=== PATIENT | male | born 1955 | race African-American/Black ===

== ENCOUNTER 2017-08-12 19:06 | Inpatient (IN) | payer SELFPAY ==
[~2017-08-12] VITALS: Ht 185.4 cm; Wt 73.1 kg
[~2017-08-12 19:06] MED LIST: CLIN1CAP5 PO; Z.0.NO CURRENT MEDS
[2017-08-12 19:30] VITALS: BP 128/61; PULSE 89; RESP 16; TEMP 98.3; O2SAT 97
[2017-08-12] MEDS ORDERED: KETOROLAC TROMETHAMINE 30 MG/ML (IVP) VIAL IV PUSH ONE (21:00)
[2017-08-12] MEDS ORDERED: guaiFENesin/CODEINE SYRUP 200 MG/20 MG/10 ML CUP PO ONE (21:00)
--- NOTE | 2017-08-12 21:04 | PD ---
HPI Chief Complaint: cough Time Seen by Provider: 20:51 Travel History International Travel<30 days: No Contact w/Intl Traveler<30days: No Traveled to known affect area: No History of Present Illness HPI 62yo M with no PMH here with multiple complaints. Said it started out with generalized muscle aches 2 weeks ago and then started coughing and having chest congestion. Chest pain is diffusely in his chest and intermittent, worst with coughing. +Chills. Denies any actual fever. +Diarrhea for 2 days. No abdominal pain but some irritation. Denies any n/v, dysuria, hematuria, focal weakness or numbness. Pt has been taking advil, weed grass and vitamin C. + Cig smoking. PFSH Past Medical History Diminished Hearing: No Renal Failure: Yes Influenza Vaccination: No Social History Alcohol Use: Yes (6PACK A WEEK) Tobacco Use: Yes (PACK A DAY) Substance Use: No Allergies-Medications (Allergen,Severity, Reaction): Coded Allergies: No Known Allergies (Verified Adverse Reaction, Unknown, 08/12/17) Reported Meds & Prescriptions Reported Meds & Active Scripts Active No Active Prescriptions or Reported Medications Review of Systems Except as stated in HPI: all other systems reviewed are Neg Physical Exam Narrative GENERAL: 62yo M in mild distress. SKIN: Focused skin assessment warm/dry. HEAD: Atraumatic. Normocephalic. EYES: Pupils equal and round. No scleral icterus. No injection or drainage. ENT: No nasal bleeding or discharge. Mucous membranes pink and moist. NECK: Trachea midline. No JVD. CARDIOVASCULAR: Regular rate and rhythm. No murmur appreciated. RESPIRATORY: No accessory muscle use. Clear to auscultation. Breath sounds equal bilaterally. GASTROINTESTINAL: Abdomen soft, mild epigastric ttp. No rebound tenderness or guarding. MUSCULOSKELETAL: No obvious deformities. No clubbing. No cyanosis. No edema. NEUROLOGICAL: Awake and alert. No obvious cranial nerve deficits. Motor grossly within normal limits. Normal speech. PSYCHIATRIC: Appropriate mood and affect; insight and judgment normal. Data Data Last Documented VS Vital Signs Date Time Temp Pulse Resp B/P (MAP) Pulse Ox O2 Delivery O2 Flow Rate FiO2 08/12/17 19:30 98.3 89 16 128/61 (83) 97 Orders Orders Electrocardiogram (08/12/17 20:58) Basic Metabolic Panel (Bmp) (08/12/17 20:58) Complete Blood Count With Diff (08/12/17 20:58) Troponin I (08/12/17 20:58) Lipase (08/12/17 20:58) Chest, Single Ap (08/12/17 20:58) Ketorolac Inj (Toradol Inj) (08/12/17 21:00) Guaifen-Cod 200-20 Mg/10ml Liq (Robituss (08/12/17 21:00) Influenzae A/B Antigen (08/12/17 20:58) Sputum Afb Culture And Stain (08/12/17 23:44) Vancomycin Inj (Vancomycin Inj) (08/12/17 23:45) Piperacil-Tazo 3.375 Gm Premix (Zosyn 3. (08/12/17 23:45) Blood Culture (08/12/17 23:44) Lactic Acid Sepsis Protocol (08/12/17 23:44) Labs Laboratory Tests Test 08/12/17 21:15 White Blood Count 29.0 TH/MM3 Red Blood Count 3.79 MIL/MM3 Hemoglobin 11.2 GM/DL Hematocrit 33.7 % Mean Corpuscular Volume 88.8 FL Mean Corpuscular Hemoglobin 29.6 PG Mean Corpuscular Hemoglobin Concent 33.3 % Red Cell Distribution Width 13.8 % Platelet Count 378 TH/MM3 Mean Platelet Volume 8.8 FL Neutrophils (%) (Auto) 78.9 % Lymphocytes (%) (Auto) 7.9 % Monocytes (%) (Auto) 12.6 % Eosinophils (%) (Auto) 0.0 % Basophils (%) (Auto) 0.6 % Neutrophils # (Auto) 22.9 TH/MM3 Lymphocytes # (Auto) 2.3 TH/MM3 Monocytes # (Auto) 3.6 TH/MM3 Eosinophils # (Auto) 0.0 TH/MM3 Basophils # (Auto) 0.2 TH/MM3 CBC Comment AUTO DIFF Differential Total Cells Counted 100 Neutrophils % (Manual) 76 % Band Neutrophils % 7 % Lymphocytes % 12 % Monocytes % 5 % Neutrophils # (Manual) 24.1 TH/MM3 Differential Comment FINAL DIFF MANUAL Platelet Estimate NORMAL Platelet Morphology Comment NORMAL Blood Urea Nitrogen 14 MG/DL Creatinine 1.16 MG/DL Random Glucose 94 MG/DL Calcium Level 8.6 MG/DL Sodium Level 140 MEQ/L Potassium Level 3.5 MEQ/L Chloride Level 105 MEQ/L Carbon Dioxide Level 25.0 MEQ/L Anion Gap 10 MEQ/L Estimat Glomerular Filtration Rate 77 ML/MIN Troponin I LESS THAN 0.02 NG/ML Lipase 118 U/L [facility] Medical Decision Making Medical Screen Exam Complete: Yes Emergency Medical Condition: Yes Interpretation(s) EKG: NSR 87bpm. Normal axis. No ST segment elevation or depression. Differential Diagnosis Flu like symptoms vs. viral syndrome vs. pancreatitis vs. gastritis vs. pneumonia vs. ACS Narrative Course 62yo M with flu like symptoms. Chest pain is atypical but pt is 62yo and a cig smoker so will check cardiac enzyme and obtain EKG and CXR. Labs reviewed, leukocytosis at 29,000. H/H low at 11.2/33.7, no prior to compare. Troponin negative. Lipase normal. CXR showed large airspace consolidation in right upper lobe. Consider atypical infection/TB. Pt denies any history of HIV, recent incarceration, homelessness, history of TB, international traveling. Will add blood culture, sputum AFB, lactic acid and cover with vancomycin and zosyn. Will place him on airborne isolation for now until TB is ruled out. Discussed with Dr. Zayas and accepted to his service. Diagnosis Primary Impression: Pneumonia Qualified Codes: J18.1 - Lobar pneumonia, unspecified organism Admitting Information Admitting Physician Requests: Admit Scripts No Active Prescriptions or Reported Meds Jennifer Chand DO August 12, 2017 21:04
--- NOTE | 2017-08-12 21:46 | RADRPT ---
EXAM DATE: 08/12/2017 9:41 PM EDT AGE/SEX: 62 years / Male INDICATIONS: Chest pain. CLINICAL DATA: This is the patient's initial encounter. Patient reports that signs and symptoms have been present for 2 weeks and indicates a pain score of 3/10. MEDICAL/SURGICAL HISTORY: None. None. COMPARISON: No prior [facility] exams available for comparison. FINDINGS: Large area of airspace consolidation in the right upper lobe. Left lung is clear. Cardiomediastinal c ontours are within normal limits. Bony thorax is intact. CONCLUSION: 1. Large airspace consolidation in the right upper lobe. Consider atypical infection/TB. Recommend f ollow-up to resolution. Electronically signed by: Khai Moe MD 08/12/2017 9:45 PM EDT
[2017-08-12 21:51] LABS: AUTOMATED NEUTROPHIL # 22.9 TH/MM3 (1.8-7.7); BASOPHIL # 0.2 TH/MM3 (0-0.2); BASOPHIL % 0.6 % (0.0-2.0); HEMATOCRIT 33.7 % (39.0-51.0); HEMOGLOBIN 11.2 GM/DL (13.0-17.0); LYMPH % 7.9 % (9.0-44.0); LYMPHOCYTE # 2.3 TH/MM3 (1.0-4.8); MEAN CELL VOLUME 88.8 FL (80.0-100.0); MEAN CORPUSCULAR HEMOGLOBIN 29.6 PG (27.0-34.0); MEAN CORPUSCULAR HGB CONC 33.3 % (32.0-36.0); MEAN PLATELET VOLUME 8.8 FL (7.0-11.0); MONO % 12.6 % (0.0-8.0); MONOCYTE # 3.6 TH/MM3 (0-0.9); NEUT % 78.9 % (16.0-70.0); PLATELET COUNT 378 TH/MM3 (150-450); RED BLOOD COUNT 3.79 MIL/MM3 (4.50-5.90); RED CELL DISTRIBUTION WIDTH 13.8 % (11.6-17.2)
[2017-08-12 22:12] LABS: BLOOD UREA NITROGEN 14 MG/DL (7-18); CALCIUM 8.6 MG/DL (8.5-10.1); CHLORIDE 105 MEQ/L (98-107); CREATININE 1.16 MG/DL (0.60-1.30); GLOMERULAR FILTRATION RATE 77 ML/MIN (>89); GLUCOSE,RANDOM 94 MG/DL (74-106); SODIUM (NA) 140 MEQ/L (136-145)
[2017-08-12 22:17] LABS: TROPONIN I LESS THAN 0.02 NG/ML (0.02-0.05)
[2017-08-12 22:33] LABS: BANDS 7 % (0-6); LYMPHOCYTES 12 % (9-44); MONOCYTES 5 % (0-8); NEUTROPHIL # MANUAL DIFF 24.1 TH/MM3 (1.8-7.7); POLYS (SEG NEUTROPHILS) 76 % (16-70)
[2017-08-12] MEDS ORDERED: VANCOMYCIN INJ 1,150 MG in SODIUM CHLOR 0.9% 250 ML INJ 250 ML IV ONE (23:45)
[2017-08-12] MEDS ORDERED: PIPERACIL-TAZO 3.375 GM PREMIX 50 ML IV ONE (23:45)
[2017-08-13] VITALS (7 sets, daily range): BP systolic 105–128; BP diastolic 55–74; PULSE 79–94; RESP 18–24; TEMP 98.3–100.1; O2SAT 93–97
[2017-08-13] MEDS ORDERED: MAGNESIUM HYDROXIDE SUSP 30 ML CUP PO PRN (00:15)
[2017-08-13] MEDS ORDERED: NALOXONE HCL 0.4 MG/ML AMP IV PUSH PRN (00:15)
[2017-08-13] MEDS ORDERED: BISACODYL 10 MG SUPP RECTAL PRN (00:15)
[2017-08-13] MEDS ORDERED: SODIUM CHLORIDE 0.9% FLUSH 10 ML FLUSH IV FLUSH PRN (00:15)
[2017-08-13] MEDS ORDERED: SENNOSIDES 8.6 MG TAB PO PRN (00:15)
[2017-08-13] MEDS ORDERED: LACTULOSE SYRUP 20 GM/30 ML CUP PO PRN (00:15)
[2017-08-13] MEDS: cefTRIAXone INJ 2,000 MG in SODIUM CHLORIDE 0.9% INJ 100 ML IV SCH (01:00)
[2017-08-13] MEDS: AZITHROMYCIN INJ 500 MG in SODIUM CHLOR 0.9% 250 ML INJ 250 ML IV SCH ×2 (01:00→03:03)
[2017-08-13] MEDS: ENOXAPARIN SODIUM 40 MG/0.4 ML SYRINGE SQ SCH (01:01)
[2017-08-13 01:14] LABS: LACTIC ACID SEPSIS PROTOCOL 2.2 mmol/L (0.4-2.0)
--- NOTE | 2017-08-13 03:06 | HHI.HP ---
[facility] No Primary Care Physician Admission Diagnosis Right upper lobe pneumonia Diagnoses: Chief Complaint: cough, congestion Travel History International Travel<30 Days: No Contact w/Intl Traveler <30 Da: No Traveled to Known Affected Are: No History of Present Illness 62-year-old male with no medical history presents to the ED with complaining of generalized weakness, cough and chest congestion. Patient states for the last 2 weeks he has been experiencing these symptoms along with chest pain that is intermittent and worse with coughing. He states he has minimal sputum production that is yellow in color, only once has he has blood tinged. He also complains of chills but no actual fever. Denies any night sweats, dizziness, nausea or vomiting. He denies any incarceration, no surrounding sick family members and he does not live in an apartment. 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 He does still continue to smoke 1 PPD. Review of Systems Except as stated in HPI: all other systems reviewed are Neg Past Family Social History Past Medical History Patient denies any medical history Past Surgical History Patient denies any surgical history Reported Medications Reported Meds & Active Scripts Active No Active Prescriptions or Reported Medications Allergies: Coded Allergies: No Known Allergies (Verified Allergy, Unknown, 08/13/17) Active Ordered Medications Current Medications Medications (Trade) Dose Ordered Sig/Otoniel Route Start Time Stop Time Status Last Admin (NS Flush) 2 ml UNSCH PRN IV FLUSH 08/13/17 00:15 (NS Flush) 2 ml BID IV FLUSH 08/13/17 09:00 (Tylenol) 650 mg Q4H PRN PO 08/13/17 00:15 (Lovenox Inj) 40 mg Q24H SQ 08/13/17 00:15 08/13/17 01:01 (Narcan Inj) 0.4 mg UNSCH PRN IV PUSH 08/13/17 00:15 (Milk Of Magnesia Liq) 30 ml Q12H PRN PO 08/13/17 00:15 (Senokot) 17.2 mg Q12H PRN PO 08/13/17 00:15 (Dulcolax Supp) 10 mg DAILY PRN RECTAL 08/13/17 00:15 (Lactulose Liq) 30 ml DAILY PRN PO 08/13/17 00:15 Ceftriaxone Sodium 2000 mg/ Sodium Chloride 100 ml @ 200 mls/hr Q24H IV 08/13/17 00:15 08/13/17 01:00 Azithromycin 500 mg/Sodium Chloride 250 ml @ 250 mls/hr Q24H IV 08/13/17 01:00 08/13/17 03:03 Family History Patient denies any family history Social History Tobacco use: 1 PPD Alcohol use: 6 pack a week Illicit drug use: Denies Physical Exam Vital Signs Vital Signs Date Time Temp Pulse Resp B/P (MAP) Pulse Ox O2 Delivery O2 Flow Rate FiO2 08/13/17 00:52 79 20 111/67 (82) 96 Room Air 08/12/17 19:30 98.3 89 16 128/61 (83) 97 Physical Exam GENERAL: This is a well-nourished, well-developed patient, in no apparent distress. SKIN: No rashes, ecchymoses or lesions. Cool and dry. HEAD: Atraumatic. Normocephalic. EYES: Pupils equal round and reactive. Extraocular motions intact. CARDIOVASCULAR: Regular rate and rhythm without murmurs, gallops, or rubs. RESPIRATORY: Rales noted in RUL and RLL. Diminished breath sounds. No wheezes. GASTROINTESTINAL: Abdomen soft, non-tender, nondistended. MUSCULOSKELETAL: Extremities without clubbing, cyanosis, or edema. No calf tenderness. NEUROLOGICAL: Awake and alert. Normal speech. Laboratory Laboratory Tests Test 08/12/17 21:15 08/13/17 00:15 08/13/17 00:25 08/13/17 00:50 White Blood Count 29.0 Red Blood Count 3.79 Hemoglobin 11.2 Hematocrit 33.7 Mean Corpuscular Volume 88.8 Mean Corpuscular Hemoglobin 29.6 Mean Corpuscular Hemoglobin Concent 33.3 Red Cell Distribution Width 13.8 Platelet Count 378 Mean Platelet Volume 8.8 Neutrophils (%) (Auto) 78.9 Lymphocytes (%) (Auto) 7.9 Monocytes (%) (Auto) 12.6 Eosinophils (%) (Auto) 0.0 Basophils (%) (Auto) 0.6 Neutrophils # (Auto) 22.9 Lymphocytes # (Auto) 2.3 Monocytes # (Auto) 3.6 Eosinophils # (Auto) 0.0 Basophils # (Auto) 0.2 CBC Comment AUTO DIFF Differential Total Cells Counted 100 Neutrophils % (Manual) 76 Band Neutrophils % 7 Lymphocytes % 12 Monocytes % 5 Neutrophils # (Manual) 24.1 Differential Comment FINAL DIFF MANUAL Platelet Estimate NORMAL Platelet Morphology Comment NORMAL Blood Urea Nitrogen 14 Creatinine 1.16 Random Glucose 94 Calcium Level 8.6 Sodium Level 140 Potassium Level 3.5 Chloride Level 105 Carbon Dioxide Level 25.0 Anion Gap 10 Estimat Glomerular Filtration Rate 77 Troponin I LESS THAN 0.02 Lipase 118 Lactic Acid Level 2.2 HIV (1&2) Ab and P24 Ag, 4th Gener NONREACTIVE Date/Time Source Procedure Growth Status 08/13/17 00:25 Blood Peripheral Aerobic Blood Culture Pending Received 08/13/17 00:25 Blood Peripheral Anaerobic Blood Culture Pending Received 08/13/17 00:25 Sputum Expectorated Sputum Gram Stain Pending Received 08/13/17 00:25 Sputum Expectorated Sputum Sputum Culture Pending Received 08/13/17 00:50 Urine Random Urine Legionella Antigen Pending Received Result Diagram: 08/12/17211408/12/172114 Imaging Last Impressions Chest X-Ray 08/12/172057 Signed Impressions: CONCLUSION: 1. Large airspace consolidation in the right upper lobe. Consider atypical inf ection/TB. Recommend follow-up to resolution. Caprini VTE Risk Assessment Caprini VTE Risk Assessment: No/Low Risk (score <= 1) Caprini Risk Assessment Model Point Value = 1 Point Value = 2 Point Value = 3 Point Value = 5 Age 41-60 Minor surgery BMI > 25 kg/m2 Swollen legs Varicose veins or History of unexplained or recurrent spontaneous Oral contraceptives or hormone replacement Sepsis (< 1 month) Serious lung disease, including pneumonia (< 1 month) Abnormal pulmonary function Acute myocardial infarction Congestive heart failure (< 1 month) History of inflammatory bowel disease Medical patient at bed rest Age 61-74 Arthroscopic surgery Major open surgery (> 45 min) Laparoscopic surgery (> 45 min) Malignancy Confined to bed (> 72 hours) Immobilizing plaster cast Central venous access Age >= 75 History of VTE Family history of VTE Factor V Leiden Prothrombin [id number] Lupus anticoagulant Anticardiolipin antibodies Elevated serum homocysteine Heparin-induced thrombocytopenia Other congenital or acquired thrombophilia Stroke (< 1 month) Elective arthroplasty Hip, pelvis, or leg fracture Acute spinal cord injury (< 1 month) Prophylaxis Regimen Total Risk Factor Score Risk Level Prophylaxis Regimen 0-1 Low Early ambulation 2 Moderate Order ONE of the following: *Sequential Compression Device (SCD) *Heparin 5000 units SQ BID 3-4 Higher Order ONE of the following medications: *Heparin 5000 units SQ TID *Enoxaparin/Lovenox 40 mg SQ daily (WT < 150 kg, CrCl > 30 mL/min) *Enoxaparin/Lovenox 30 mg SQ daily (WT < 150 kg, CrCl > 10-29 mL/min) *Enoxaparin/Lovenox 30 mg SQ BID (WT < 150 kg, CrCl > 30 mL/min) AND/OR *Sequential Compression Device (SCD) 5 or more Highest Order ONE of the following medications: *Heparin 5000 units SQ TID (Preferred with Epidurals) *Enoxaparin/Lovenox 40 mg SQ daily (WT < 150 kg, CrCl > 30 mL/min) *Enoxaparin/Lovenox 30 mg SQ daily (WT < 150 kg, CrCl > 10-29 mL/min) *Enoxaparin/Lovenox 30 mg SQ BID (WT < 150 kg, CrCl > 30 mL/min) AND *Sequential Compression Device (SCD) Assessment and Plan Problem List: (1) Pneumonia ICD Code: J18.9 - Pneumonia, unspecified organism Status: Acute Assessment and Plan 62-year-old male with no medical history presents to the ED with complaining of generalized weakness, cough and chest congestion. Pneumonia, RUL with leukocytosis and bandemia WBC 29 7%bands Chest xray reviewed and shows large airspace consolidation in the right upper lobe. Concerning for TB Flu negative -IV antibiotics Azithromycin and Rocephin -Mucinex BID, Duonebs scheduled -Sputum culture and AFB ordered -Airborne isolation -Check TB PCR, and mycoplasma pneumon IgG and IgM -Legionella antigen ordered -Robitussin PRN DVT prophylaxis: SCDs, lovenox Discussed Condition With Patient and RN Physician Certification 2 Midnight Certification Type: Admission for Inpatient Services Order for Inpatient Services The services are ordered in accordance with Medicare regulations or non- Medicare payer requirements, as applicable. In the case of services not specified as inpatient-only, they are appropriately provided as inpatient services in accordance with the 2-midnight benchmark. Estimated LOS (days): 2 days is the estimated time the patient will need to remain in the hospital, assuming treatment plan goals are met and no additional complications. Post-Hospital Plan: Home Problem Qualifiers (1) Pneumonia: Qualified Codes: J18.1 - Lobar pneumonia, unspecified organism Leah West August 13, 2017 03:06
[2017-08-13] MEDS: guaiFENesin/CODEINE SYRUP 200 MG/20 MG/10 ML CUP PO PRN ×3 (04:40→20:42)
[2017-08-13] MEDS: SODIUM CHLORIDE 0.9% FLUSH 10 ML FLUSH IV FLUSH SCH ×2 (09:13→20:43)
[2017-08-13] MEDS: guaiFENesin E.R. 600 MG TAB PO SCH ×2 (09:41→20:42)
[2017-08-13] MEDS: ACETAMINOPHEN 325 MG TAB PO PRN (20:43)
--- NOTE | 2017-08-13 21:22 | RADRPT ---
EXAM DATE: 08/13/2017 9:14 PM EDT AGE/SEX: 62 years / Male INDICATIONS: Shortness of breath. Chest pain. Abnormal chest x-ray examination demonstrating large a irspace consolidation in the right upper lobe. CLINICAL DATA: This is the patient's initial encounter. Patient reports that signs and symptoms have been present for 1 day and indicates a pain score of 0/10. MEDICAL/SURGICAL HISTORY: Renal failure, acute. Non-responsive. RADIATION DOSE: 6.89 CTDI (mGy) COMPARISON: [facility] [place], CHEST SINGLE AP, 08/12/2017. . TECHNIQUE: Multiple contiguous axial images were obtained through the chest without contrast. Image s were obtained in suspended respiration using multiple row detector helical technique. Using automa mabel exposure control and adjustment of the mA and/or kV according to patient size, radiation dose was kept as low as reasonably achievable to obtain optimal diagnostic quality images. FINDINGS: Lungs: The lungs are symmetrically aerated. There is a large area of dense consolidative infiltrate in the right upper lobe with multiple air bronchograms along the periphery. This extends out to the p leural surface. There is underlying emphysema and mild hyperinflation. The left lung is clear. Mediastinum: There is good visualization of the great vessels of the middle mediastinum. There are 2 borderline prominent pretracheal lymph nodes measuring up to 1.7 cm in greatest diameter. There is n o distinct hilar adenopathy on this noncontrast exam. The central airways are patent.. Coronary arter y calcifications are present. Pleurae: No evidence of focal thickening or pleural effusion. Axillae: Unremarkable. Bony Structures: Unremarkable. Miscellaneous: The examination was extended to include the upper abdomen, and both adrenal glands ar e normal in size and configuration. CONCLUSION: 1. Dense consolidation in the right upper lobe most consistent with severe pneumonia. 2. Mild pretracheal adenopathy. Electronically signed by: Hany French MD 08/13/2017 9:20 PM EDT
[2017-08-14] MEDS: cefTRIAXone INJ 2,000 MG in SODIUM CHLORIDE 0.9% INJ 100 ML IV SCH (00:10)
[2017-08-14] MEDS: ENOXAPARIN SODIUM 40 MG/0.4 ML SYRINGE SQ SCH (00:10)
[2017-08-14] MEDS: AZITHROMYCIN INJ 500 MG in SODIUM CHLOR 0.9% 250 ML INJ 250 ML IV SCH (00:50)
[2017-08-14 05:43] VITALS: BP 111/74; PULSE 77; RESP 20; TEMP 99; O2SAT 94
[2017-08-14 08:00] VITALS: BP 123/57; PULSE 94; RESP 20; TEMP 100.2; O2SAT 94
--- NOTE | 2017-08-14 08:09 | HHI.PR ---
Subjective Remarks in no acute distress. T max 100.1. sob improving. has occasional cough. Objective Vitals Vital Signs Date Time Temp Pulse Resp B/P (MAP) Pulse Ox O2 Delivery O2 Flow Rate FiO2 08/14/17 07:00 Room Air 08/14/17 05:43 99.0 77 20 111/74 (86) 94 08/13/17 23:51 98.3 79 20 108/59 (75) 93 08/13/17 20:00 100.1 93 20 106/59 (75) 94 08/13/17 16:00 100.1 93 18 128/74 (92) 93 08/13/17 15:02 (84) I/O 08/13/17 08/13/17 08/13/17 08/14/17 08/14/17 08/14/17 07:00 15:00 23:00 07:00 15:00 23:00 Intake Total 650 ml 590 ml Balance 650 ml 590 ml Intake Oral 240 ml IV Total 650 ml 350 ml # Voids 2 # Bowel Movements 1 Result Diagram: 08/12/17211408/12/172114 Imaging Last Impressions Chest CT 08/13/17 0000 Signed Impressions: CONCLUSION: 1. Dense consolidation in the right upper lobe most consistent with severe pne umonia. 2. Mild pretracheal adenopathy. Chest X-Ray 08/12/172057 Signed Impressions: CONCLUSION: 1. Large airspace consolidation in the right upper lobe. Consider atypical inf ection/TB. Recommend follow-up to resolution. Objective Remarks GENERAL: This is a well-nourished, well-developed patient, in no apparent distress. CARDIOVASCULAR: Regular rate and regular rhythm without murmurs, gallops, or rubs. RESPIRATORY: Clear to auscultation. Breath sounds equal bilaterally. No wheezes , rales, or rhonchi. GASTROINTESTINAL: Abdomen soft, non-tender, nondistended. Normal, active bowel sounds MUSCULOSKELETAL: Extremities without clubbing, cyanosis, or edema. NEURO: Alert & Oriented x4 to person, place, time, situation. Moves all ext x4 Medications and IVs Inpatient Medications Acetaminophen (Tylenol) 650 mg Q4H PRN PO YANES, fever, pain 1-4 Last administered on 08/13/17at 20:43; Start 08/13/17 at 00:15 Azithromycin 500 mg/Sodium Chloride 250 ml @ 250 mls/hr Q24H IV Last administered on 08/14/17at 00:50; Start 08/13/17 at 01:00 Bisacodyl (Dulcolax Supp) 10 mg DAILY PRN RECTAL SEVERE CONSITIPATION/ IF NPO ; Start 08/13/17 at 00:15 Ceftriaxone Sodium 2000 mg/ Sodium Chloride 100 ml @ 200 mls/hr Q24H IV Last administered on 08/14/17at 00:10; Start 08/13/17 at 00:15 Enoxaparin Sodium (Lovenox Inj) 40 mg Q24H SQ Last administered on 08/14/17at 00 :10; Start 08/13/17 at 00:15 Guaifenesin (Mucinex Er) 600 mg BID PO Last administered on 08/13/17at 20:42; Start 08/13/17 at 09:00 Guaifenesin/ Codeine Phosphate (Robitussin Ac 200-20 Mg/10 ml Liq) 10 ml Q4H PRN PO cough Last administered on 08/13/17at 20:42; Start 08/13/17 at 03:45 Ketorolac Tromethamine (Toradol Inj) 30 mg ONCE ONCE IV PUSH Last administered on 08/12/17at 21:35; Start 08/12/17 at 21:00; Stop 08/12/17 at 21:01 ; Status DC Lactulose (Lactulose Liq) 30 ml DAILY PRN PO SEVERE CONSITIPATION/ IF PO; Start 08/13/17 at 00:15 Magnesium Hydroxide (Milk Of Magnesia Liq) 30 ml Q12H PRN PO Mild constipation ; Start 08/13/17 at 00:15 Naloxone HCl (Narcan Inj) 0.4 mg UNSCH PRN IV PUSH SEE LABEL COMMENTS; Start at 00:15 Piperacillin Sod/ Tazobactam Sod 50 ml @ 100 mls/hr ONCE ONCE IV Last administered on 08/13/17at 00:30; Start 08/12/17 at 23:45; Stop 08/13/17 at 00:14 ; Status DC Sennosides (Senokot) 17.2 mg Q12H PRN PO Moderate constipation; Start 08/13/17 at 00:15 Sodium Chloride (NS Flush) 2 ml BID IV FLUSH Last administered on 08/13/17at 20: 43; Start 08/13/17 at 09:00 Vancomycin HCl 1150 mg/Sodium Chloride 261.5 ml @ 250 mls/hr ONCE ONCE IV Last administered on 08/12/17at 23:45; Start 08/12/17 at 23:45; Stop 08/13/17 at 00:47; Status DC A/P Problem List: (1) Pneumonia ICD Code: J18.9 - Pneumonia, unspecified organism Status: Acute Assessment and Plan Pneumonia, RUL with leukocytosis and bandemia Chest xray reviewed and shows large airspace consolidation in the right upper lobe. chest CT with RUL pneumonia Flu negative -IV antibiotics Azithromycin and Rocephin -Mucinex BID, Duonebs scheduled -Sputum culture and AFB ordered -Airborne isolation -Check TB PCR negative. -Robitussin PRN -repeat CXR tomorrow. DVT prophylaxis: SCDs, lovenox Discharge Planning dc home within the next one-tow days if continues to improve, remain afebrile- pending the cultures. Problem Qualifiers (1) Pneumonia: Qualified Codes: J18.1 - Lobar pneumonia, unspecified organism Shayla Hilario MD August 14, 2017 08:09
--- NOTE | 2017-08-14 08:14 | EKG ---
Date Performed: 08/12/2017 Time Performed: 21:18:37 PTAGE: 62 years EKG: Sinus rhythm WITH OCCASIONAL VENTRICULAR PREMATURE COMPLEXES BORDERLINE ECG NO PREVIOUS TRACING DOCTOR: Chuy Goode Interpretating Date/Time 08/14/2017 08:11:48
[2017-08-14] MEDS: SODIUM CHLORIDE 0.9% FLUSH 10 ML FLUSH IV FLUSH SCH ×2 (08:26→21:00)
[2017-08-14] MEDS: guaiFENesin E.R. 600 MG TAB PO SCH ×2 (08:26→21:14)
[2017-08-14] MEDS: ACETAMINOPHEN 325 MG TAB PO PRN (09:41)
[2017-08-14 10:07] LABS: AUTOMATED NEUTROPHIL # 20.3 TH/MM3 (1.8-7.7); BASOPHIL # 0.2 TH/MM3 (0-0.2); BASOPHIL % 0.8 % (0.0-2.0); EOSINOPHIL % 0.1 % (0.0-4.0); HEMATOCRIT 33.8 % (39.0-51.0); LYMPHOCYTE # 1.5 TH/MM3 (1.0-4.8); MEAN CELL VOLUME 89.4 FL (80.0-100.0); MEAN CORPUSCULAR HEMOGLOBIN 29.1 PG (27.0-34.0); MEAN CORPUSCULAR HGB CONC 32.5 % (32.0-36.0); MONO % 10.1 % (0.0-8.0); MONOCYTE # 2.5 TH/MM3 (0-0.9); PLATELET COUNT 409 TH/MM3 (150-450); RED BLOOD COUNT 3.78 MIL/MM3 (4.50-5.90); RED CELL DISTRIBUTION WIDTH 14.5 % (11.6-17.2); WHITE BLOOD COUNT 24.4 TH/MM3 (4.0-11.0)
[2017-08-14 10:35] LABS: BICARBONATE 24.6 MEQ/L (21.0-32.0); CALCIUM 8.4 MG/DL (8.5-10.1); CREATININE 0.95 MG/DL (0.60-1.30)
[2017-08-14 10:38] LABS: BANDS 4 % (0-6); LYMPHOCYTES 7 % (9-44); MONOCYTES 12 % (0-8); MYELOCYTES 1 % (0-0); NEUTROPHIL # MANUAL DIFF 19.8 TH/MM3 (1.8-7.7); POLYS (SEG NEUTROPHILS) 76 % (16-70)
[2017-08-14 12:00] VITALS: BP 109/60; PULSE 83; RESP 20; TEMP 97.3; O2SAT 97
[2017-08-14] MEDS ORDERED: POTASSIUM CHLORIDE 10 MEQ CONTROLLED RELEASE TAB PO ONE (14:30)
[2017-08-14 14:54] LABS: MYCOPLASMA PNEUMONIAE IGG Positive (Negative); MYCOPLASMA PNEUMONIAE IGM Negative (Negative)
[2017-08-14 16:00] VITALS: BP 118/58; PULSE 80; RESP 20; TEMP 98.3; O2SAT 94
[2017-08-14] MEDS: guaiFENesin/CODEINE SYRUP 200 MG/20 MG/10 ML CUP PO PRN ×2 (17:15→21:14)
[2017-08-14 20:00] VITALS: BP 132/66; PULSE 96; RESP 16; TEMP 100; O2SAT 94
[2017-08-15] VITALS: BP 121/58; PULSE 91; RESP 16; TEMP 98.9; O2SAT 93
[2017-08-15] MEDS: cefTRIAXone INJ 2,000 MG in SODIUM CHLORIDE 0.9% INJ 100 ML IV SCH (00:48)
[2017-08-15] MEDS: ENOXAPARIN SODIUM 40 MG/0.4 ML SYRINGE SQ SCH (00:48)
[2017-08-15] MEDS: AZITHROMYCIN INJ 500 MG in SODIUM CHLOR 0.9% 250 ML INJ 250 ML IV SCH (01:25)
[2017-08-15] MEDS: guaiFENesin/CODEINE SYRUP 200 MG/20 MG/10 ML CUP PO PRN ×3 (01:53→12:46)
[2017-08-15 04:00] VITALS: BP 101/57; PULSE 95; RESP 18; TEMP 100.9; O2SAT 90
[2017-08-15 07:43] LABS: AUTOMATED NEUTROPHIL # 18.3 TH/MM3 (1.8-7.7); BASOPHIL # 0.3 TH/MM3 (0-0.2); BASOPHIL % 1.4 % (0.0-2.0); HEMATOCRIT 30.8 % (39.0-51.0); HEMOGLOBIN 10.3 GM/DL (13.0-17.0); LYMPH % 7.9 % (9.0-44.0); LYMPHOCYTE # 1.9 TH/MM3 (1.0-4.8); MEAN CELL VOLUME 88.8 FL (80.0-100.0); MEAN CORPUSCULAR HEMOGLOBIN 29.5 PG (27.0-34.0); MEAN CORPUSCULAR HGB CONC 33.3 % (32.0-36.0); MEAN PLATELET VOLUME 8.6 FL (7.0-11.0); MONO % 13.7 % (0.0-8.0); MONOCYTE # 3.3 TH/MM3 (0-0.9); PLATELET COUNT 389 TH/MM3 (150-450); RED BLOOD COUNT 3.47 MIL/MM3 (4.50-5.90); RED CELL DISTRIBUTION WIDTH 14.2 % (11.6-17.2); WHITE BLOOD COUNT 23.8 TH/MM3 (4.0-11.0)
[2017-08-15] MEDS: SODIUM CHLORIDE 0.9% FLUSH 10 ML FLUSH IV FLUSH SCH (08:02)
[2017-08-15] MEDS: guaiFENesin E.R. 600 MG TAB PO SCH (08:02)
--- NOTE | 2017-08-15 09:35 | HHI.PR ---
Subjective Remarks in no acute distress. denies sob although still with some cough. Tmax 100.9. Objective Vitals Vital Signs Date Time Temp Pulse Resp B/P (MAP) Pulse Ox O2 Delivery O2 Flow Rate FiO2 08/15/17 04:00 100.9 95 18 101/57 (72) 90 08/15/17 00:00 Room Air 08/15/17 00:00 98.9 91 16 121/58 (79) 93 08/14/17 20:00 100.0 96 16 132/66 (88) 94 08/14/17 20:00 Room Air 08/14/17 16:00 98.3 80 20 118/58 (78) 94 08/14/17 12:00 97.3 83 20 109/60 (76) 97 08/14/17 11:00 Room Air I/O 08/14/17 08/14/17 08/14/17 08/15/17 08/15/17 08/15/17 07:00 15:00 23:00 07:00 15:00 23:00 Intake Total 590 ml 480 ml 360 ml Balance 590 ml 480 ml 360 ml Intake Oral 240 ml 480 ml 360 ml IV Total 350 ml # Voids 2 4 1 # Bowel Movements 1 2 1 Result Diagram: 08/15/17 0613 08/14/17 0715 Imaging Last Impressions Chest CT 08/13/17 0000 Signed Impressions: CONCLUSION: 1. Dense consolidation in the right upper lobe most consistent with severe pne umonia. 2. Mild pretracheal adenopathy. Chest X-Ray 08/12/172057 Signed Impressions: CONCLUSION: 1. Large airspace consolidation in the right upper lobe. Consider atypical inf ection/TB. Recommend follow-up to resolution. Objective Remarks GENERAL: This is a well-nourished, well-developed patient, in no apparent distress. CARDIOVASCULAR: Regular rate and regular rhythm without murmurs, gallops, or rubs. RESPIRATORY: Clear to auscultation. Breath sounds equal bilaterally. No wheezes , rales, or rhonchi. GASTROINTESTINAL: Abdomen soft, non-tender, nondistended. Normal, active bowel sounds MUSCULOSKELETAL: Extremities without clubbing, cyanosis, or edema. NEURO: Alert & Oriented x4 to person, place, time, situation. Moves all ext x4 Medications and IVs Inpatient Medications Acetaminophen (Tylenol) 650 mg Q4H PRN PO YANES, fever, pain 1-4 Last administered on 08/14/17at 09:41; Start 08/13/17 at 00:15 Azithromycin 500 mg/Sodium Chloride 250 ml @ 250 mls/hr Q24H IV Last administered on 08/15/17at 01:25; Start 08/13/17 at 01:00 Bisacodyl (Dulcolax Supp) 10 mg DAILY PRN RECTAL SEVERE CONSITIPATION/ IF NPO ; Start 08/13/17 at 00:15 Ceftriaxone Sodium 2000 mg/ Sodium Chloride 100 ml @ 200 mls/hr Q24H IV Last administered on 08/15/17at 00:48; Start 08/13/17 at 00:15 Enoxaparin Sodium (Lovenox Inj) 40 mg Q24H SQ Last administered on 08/15/17at 00 :48; Start 08/13/17 at 00:15 Guaifenesin (Mucinex Er) 600 mg BID PO Last administered on 08/15/17at 08:02; Start 08/13/17 at 09:00 Guaifenesin/ Codeine Phosphate (Robitussin Ac 200-20 Mg/10 ml Liq) 10 ml Q4H PRN PO cough Last administered on 08/15/17at 08:02; Start 08/13/17 at 03:45 Ketorolac Tromethamine (Toradol Inj) 30 mg ONCE ONCE IV PUSH Last administered on 08/12/17at 21:35; Start 08/12/17 at 21:00; Stop 08/12/17 at 21:01 ; Status DC Lactulose (Lactulose Liq) 30 ml DAILY PRN PO SEVERE CONSITIPATION/ IF PO; Start 08/13/17 at 00:15 Magnesium Hydroxide (Milk Of Magnesia Liq) 30 ml Q12H PRN PO Mild constipation ; Start 08/13/17 at 00:15 Naloxone HCl (Narcan Inj) 0.4 mg UNSCH PRN IV PUSH SEE LABEL COMMENTS; Start at 00:15 Piperacillin Sod/ Tazobactam Sod 50 ml @ 100 mls/hr ONCE ONCE IV Last administered on 08/13/17at 00:30; Start 08/12/17 at 23:45; Stop 08/13/17 at 00:14 ; Status DC Potassium Chloride (KCl) 30 meq ONCE ONCE PO Last administered on 08/14/17at 14 :30; Start 08/14/17 at 14:30; Stop 08/14/17 at 14:31; Status DC Sennosides (Senokot) 17.2 mg Q12H PRN PO Moderate constipation; Start 08/13/17 at 00:15 Sodium Chloride (NS Flush) 2 ml BID IV FLUSH Last administered on 08/15/17at 08: 02; Start 08/13/17 at 09:00 Vancomycin HCl 1150 mg/Sodium Chloride 261.5 ml @ 250 mls/hr ONCE ONCE IV Last administered on 08/12/17at 23:45; Start 08/12/17 at 23:45; Stop 08/13/17 at 00:47; Status DC A/P Problem List: (1) Pneumonia ICD Code: J18.9 - Pneumonia, unspecified organism Status: Acute Assessment and Plan Pneumonia, RUL with leukocytosis and bandemia Chest xray reviewed and shows large airspace consolidation in the right upper lobe. chest CT with RUL pneumonia Flu negative -IV antibiotics Azithromycin and Rocephin -Mucinex BID, Duonebs scheduled -Sputum culture with normal respiratory cristy/ AFB stain negative. - TB PCR negative. -Robitussin PRN -will consult pulmonary in light of persistent fever/leukocytosis DVT prophylaxis: SCDs, lovenox Discharge Planning not ready for discharge- still febrile/ consulted pulmonary. Problem Qualifiers (1) Pneumonia: Qualified Codes: J18.1 - Lobar pneumonia, unspecified organism Shayla Hilario MD August 15, 2017 09:35
--- NOTE | 2017-08-16 13:48 | HHI.DS ---
Discharge Summary Admission Date August 13, 2017 at 00:07 Discharge Date: August 15, 2017 Admitting Diagnosis Right upper lobe pneumonia (1) Pneumonia ICD Code: J18.9 - Pneumonia, unspecified organism Diagnosis: Principal Status: Acute Procedures none Brief History - From Admission 62-year-old male with no medical history presents to the ED with complaining of generalized weakness, cough and chest congestion. Patient states for the last 2 weeks he has been experiencing these symptoms along with chest pain that is intermittent and worse with coughing. He states he has minimal sputum production that is yellow in color, only once has he has blood tinged. He also complains of chills but no actual fever. Denies any night sweats, dizziness, nausea or vomiting. He denies any incarceration, no surrounding sick family members and he does not live in an apartment. 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 He does still continue to smoke 1 PPD. CBC/BMP: 08/15/17 0613 08/14/17 0715 Significant Findings Laboratory Tests Test 08/14/17 07:15 08/15/17 06:13 White Blood Count 24.4 TH/MM3 (4.0-11.0) 23.8 TH/MM3 (4.0-11.0) Red Blood Count 3.78 MIL/MM3 (4.50-5.90) 3.47 MIL/MM3 (4.50-5.90) Hemoglobin 11.0 GM/DL (13.0-17.0) 10.3 GM/DL (13.0-17.0) Hematocrit 33.8 % (39.0-51.0) 30.8 % (39.0-51.0) Neutrophils (%) (Auto) 83.0 % (16.0-70.0) 77.0 % (16.0-70.0) Lymphocytes (%) (Auto) 6.0 % (9.0-44.0) 7.9 % (9.0-44.0) Monocytes (%) (Auto) 10.1 % (0.0-8.0) 13.7 % (0.0-8.0) Neutrophils # (Auto) 20.3 TH/MM3 (1.8-7.7) 18.3 TH/MM3 (1.8-7.7) Monocytes # (Auto) 2.5 TH/MM3 (0-0.9) 3.3 TH/MM3 (0-0.9) Neutrophils % (Manual) 76 % (16-70) Lymphocytes % 7 % (9-44) Monocytes % 12 % (0-8) Neutrophils # (Manual) 19.8 TH/MM3 (1.8-7.7) Myelocytes 1 % (0-0) Random Glucose 59 MG/DL (74-106) Calcium Level 8.4 MG/DL (8.5-10.1) Potassium Level 3.3 MEQ/L (3.5-5.1) Basophils # (Auto) 0.3 TH/MM3 (0-0.2) Imaging Last Impressions Chest CT 08/13/17 0000 Signed Impressions: CONCLUSION: 1. Dense consolidation in the right upper lobe most consistent with severe pne umonia. 2. Mild pretracheal adenopathy. Chest X-Ray 08/12/172057 Signed Impressions: CONCLUSION: 1. Large airspace consolidation in the right upper lobe. Consider atypical inf ection/TB. Recommend follow-up to resolution. PE at Discharge GENERAL: This is a well-nourished, well-developed patient, in no apparent distress. CARDIOVASCULAR: Regular rate and regular rhythm without murmurs, gallops, or rubs. RESPIRATORY: Clear to auscultation. Breath sounds equal bilaterally. No wheezes , rales, or rhonchi. GASTROINTESTINAL: Abdomen soft, non-tender, nondistended. Normal, active bowel sounds MUSCULOSKELETAL: Extremities without clubbing, cyanosis, or edema. NEURO: Alert & Oriented x4 to person, place, time, situation. Moves all ext x4 Hospital Course Pneumonia, RUL with leukocytosis and bandemia Chest xray reviewed and shows large airspace consolidation in the right upper lobe. chest CT with RUL pneumonia Flu negative -IV antibiotics Azithromycin and Rocephin -Mucinex BID, Duonebs scheduled -Sputum culture with normal respiratory cristy/ AFB stain negative. - TB PCR negative. -Robitussin PRN - consulted pulmonary in light of persistent fever/leukocytosis Pt Condition on Discharge: Guarded Discharge Disposition: Discharge Home (patient left the medical floor.) Discharge Time: <= 30 minutes Shayla Hilario MD August 16, 2017 13:48
== END 2017-08-15 18:24 | disposition left against medical advice (07) | DRG 195 ==
LOC: NEPC 19:06 → NEDA 08-13 00:07 → NEDH 08-13 04:24 → N04A 08-13 14:48
PROVIDERS: ADMIT Internal Medicine; ATTEND Internal Medicine
DX: J18.1 Lobar pneumonia, unspecified organism (principal); F17.210 Nicotine dependence, cigarettes, uncomplicated
CPT/HCPCS: 71045; 71250; 80048; 83605; 83690; 84484; 85007; 85025; 85027; 86703; 86738; 87015; 87040; 87070; 87116; 87205; 87206; 87449; 87556; 87798; 87804; 93005; 96365; 96375; J0456; J0696; J1650; J1885; J2543; J3370; J7050

== ENCOUNTER 2017-08-15 20:20 | Inpatient (IN) | payer SELFPAY ==
[~2017-08-15] VITALS: Ht 185.4 cm; Wt 81.0 kg
[2017-08-15 20:36] VITALS: BP 129/62; PULSE 99; RESP 18; TEMP 99; O2SAT 97
[2017-08-15 22:20] LABS: BASOPHIL # 0.1 TH/MM3 (0-0.2); BASOPHIL % 0.3 % (0.0-2.0); HEMATOCRIT 30.4 % (39.0-51.0); HEMOGLOBIN 10.5 GM/DL (13.0-17.0); LYMPH % 8.2 % (9.0-44.0); LYMPHOCYTE # 2.2 TH/MM3 (1.0-4.8); MEAN CELL VOLUME 87.6 FL (80.0-100.0); MEAN CORPUSCULAR HEMOGLOBIN 30.2 PG (27.0-34.0); MEAN CORPUSCULAR HGB CONC 34.4 % (32.0-36.0); MONO % 10.8 % (0.0-8.0); MONOCYTE # 2.9 TH/MM3 (0-0.9); NEUT % 80.7 % (16.0-70.0); PLATELET COUNT 418 TH/MM3 (150-450); RED BLOOD COUNT 3.47 MIL/MM3 (4.50-5.90); RED CELL DISTRIBUTION WIDTH 14.4 % (11.6-17.2); WHITE BLOOD COUNT 27.2 TH/MM3 (4.0-11.0)
--- NOTE | 2017-08-15 22:32 | RADRPT ---
EXAM DATE: 08/15/2017 10:27 PM EDT AGE/SEX: 62 years / Male INDICATIONS: Cough and shortness of breath. CLINICAL DATA: This is the patient's initial encounter. Patient reports that signs and symptoms have been present for 1 day and indicates a pain score of 0/10. MEDICAL/SURGICAL HISTORY: None. None. COMPARISON: No prior [facility] exams available for comparison. FINDINGS: Extensive airspace disease is seen throughout the right lung especially within the upper lobe. The left lung is relatively clear. Heart is normal in size. Osseous structures are intact CONCLUSION: Extensive right lung airspace disease Electronically signed by: Forrest Johnson MD 08/15/2017 10:31 PM EDT
[2017-08-15 22:36] LABS: ALBUMIN 2.2 GM/DL (3.4-5.0); ALT (GPT) 42 U/L (12-78); AST (GOT) 47 U/L (15-37); BICARBONATE 26.6 MEQ/L (21.0-32.0); BLOOD UREA NITROGEN 10 MG/DL (7-18); CALCIUM 8.3 MG/DL (8.5-10.1); CHLORIDE 101 MEQ/L (98-107); GLOMERULAR FILTRATION RATE 82 ML/MIN (>89); GLUCOSE,RANDOM 89 MG/DL (74-106); SODIUM (NA) 138 MEQ/L (136-145)
[2017-08-15 22:39] LABS: ALKALINE PHOSPHATASE 175 U/L (45-117); TOTAL BILIRUBIN ADULT 0.7 MG/DL (0.2-1.0); TOTAL PROTEIN 7.5 GM/DL (6.4-8.2)
[2017-08-15 22:58] LABS: BANDS 3 % (0-6); LYMPHOCYTES 5 % (9-44); MONOCYTES 9 % (0-8); NEUTROPHIL # MANUAL DIFF 23.4 TH/MM3 (1.8-7.7); POLYS (SEG NEUTROPHILS) 83 % (16-70)
[2017-08-15 23:00] LABS: TOXIC GRANULATION 1+ (NORMAL); TOXIC VACUOLATION PRESENT (NONE SEEN)
[2017-08-15] MEDS ORDERED: ACETAMINOPHEN/HYDROcodone 325 MG/10 MG TAB PO PRN (23:30)
[2017-08-15] MEDS ORDERED: MAGNESIUM HYDROXIDE SUSP 30 ML CUP PO PRN (23:30)
[2017-08-15] MEDS ORDERED: SODIUM CHLORIDE 0.9% FLUSH 10 ML FLUSH IV FLUSH PRN (23:30)
[2017-08-15] MEDS ORDERED: Vancomycin Consult Pharmacy 1 EA OTHER SCH (23:30)
[2017-08-15] MEDS ORDERED: METOCLOPRAMIDE HCL 10 MG/2 ML VIAL IV PUSH PRN (23:30)
[2017-08-15] MEDS ORDERED: LACTULOSE SYRUP 20 GM/30 ML CUP PO PRN (23:30)
[2017-08-15] MEDS ORDERED: ACETAMINOPHEN/HYDROcodone 325 MG/5 MG TAB PO PRN (23:30)
[2017-08-15] MEDS ORDERED: ACETAMINOPHEN 325 MG TAB PO PRN (23:30)
[2017-08-15] MEDS ORDERED: BISACODYL 10 MG SUPP RECTAL PRN (23:30)
[2017-08-15] MEDS ORDERED: SENNOSIDES 8.6 MG TAB PO PRN (23:30)
[2017-08-15] MEDS ORDERED: CEFEPIME INJ 1,000 MG in SODIUM CHLORIDE 0.9% INJ 100 ML IV SCH (23:30)
--- NOTE | 2017-08-15 23:32 | HHI.HP ---
[facility] No Primary Care Physician Admission Diagnosis Diagnoses: (1) Sepsis Diagnosis: Principal (2) PNA (pneumonia) Diagnosis: Principal (3) Tobacco abuse Diagnosis: Principal Travel History International Travel<30 Days: No Contact w/Intl Traveler <30 Da: No Traveled to Known Affected Are: No History of Present Illness This is a 62-year-old male with no significant PMH who presents the ER for readmission secondary to ongoing cough and fever. Pt was recently admitted on for Sepsis/PNA, CT Chest w/ RUL PNA, on IV Rocephin/Zithro, negative TB PCR and AFB. States he "was cooped up inside and it was a beautiful day", states he was told by RN he could walk around and went outside to the courtyard where he fell asleep. States when he went back upstairs to his room he was told he had been discharged. States he's had ongoing cough and fever, and was urged by family to come back for re-admission. On arrival, BP 101/57, HR 95, O2 sat 90% on RA, Temp 100.9. WBC 27.2, previously 23.8. Chemistry essentially unremarkable. CXR with extensive right lung airspace disease. Review of Systems Except as stated in HPI: all other systems reviewed are Neg ROS: 14 point review of systems otherwise negative. Past Family Social History Past Medical History PMH: None Past Surgical History PAST SURGICAL HISTORY: Wrist Surgery Allergies: Coded Allergies: No Known Allergies (Verified Allergy, Unknown, 08/15/17) Family History PAST FAMILY HISTORY: Reviewed. No h/o DM or CAD Social History PAST SOCIAL HISTORY: Occasional alcohol. Smokes 1ppd. H/o Crack Cocaine per reports. Physical Exam Vital Signs Vital Signs Date Time Temp Pulse Resp B/P (MAP) Pulse Ox O2 Delivery O2 Flow Rate FiO2 08/15/17 20:36 99.0 99 18 129/62 (84) 97 Physical Exam PE: GENERAL: Pleasant middle-aged black male in no acute distress. HEENT: PERRLA, EOMI. No scleral icterus or conjunctival pallor. No lid lag or facial droop. CARDIOVASCULAR: Regular rate and rhythm. No obvious murmurs to auscultation. No chest tenderness to palpation. RESPIRATORY: No obvious rhonchi or wheezing. Clear to auscultation. Breath sounds equal bilaterally. GASTROINTESTINAL: Abdomen soft, non-tender, nondistended. BS normal. MUSCULOSKELETAL: Extremities without clubbing, cyanosis, or edema. No obvious deformities. NEUROLOGICAL: Awake, alert and oriented x4. No focal neurologic deficits. Moving both upper and lower extremities spontaneously. Laboratory Laboratory Tests Test 08/15/17 22:12 White Blood Count 27.2 Red Blood Count 3.47 Hemoglobin 10.5 Hematocrit 30.4 Mean Corpuscular Volume 87.6 Mean Corpuscular Hemoglobin 30.2 Mean Corpuscular Hemoglobin Concent 34.4 Red Cell Distribution Width 14.4 Platelet Count 418 Mean Platelet Volume 8.0 Neutrophils (%) (Auto) 80.7 Lymphocytes (%) (Auto) 8.2 Monocytes (%) (Auto) 10.8 Eosinophils (%) (Auto) 0.0 Basophils (%) (Auto) 0.3 Neutrophils # (Auto) 22.0 Lymphocytes # (Auto) 2.2 Monocytes # (Auto) 2.9 Eosinophils # (Auto) 0.0 Basophils # (Auto) 0.1 CBC Comment AUTO DIFF Differential Total Cells Counted 100 Neutrophils % (Manual) 83 Band Neutrophils % 3 Lymphocytes % 5 Monocytes % 9 Neutrophils # (Manual) 23.4 Differential Comment FINAL DIFF MANUAL Toxic Granulation 1+ Toxic Vacuolation PRESENT Platelet Estimate NORMAL Platelet Morphology Comment NORMAL Red Cell Morphology Comment NORMAL Blood Urea Nitrogen 10 Creatinine 1.10 Random Glucose 89 Total Protein 7.5 Albumin 2.2 Calcium Level 8.3 Alkaline Phosphatase 175 Aspartate Amino Transf (AST/SGOT) 47 Alanine Aminotransferase (ALT/SGPT) 42 Total Bilirubin 0.7 Sodium Level 138 Potassium Level 3.6 Chloride Level 101 Carbon Dioxide Level 26.6 Anion Gap 10 Estimat Glomerular Filtration Rate 82 Lactic Acid Level 1.1 Result Diagram: 08/15/17221108/15/172211 Caprini VTE Risk Assessment Caprini VTE Risk Assessment: No/Low Risk (score <= 1) Caprini Risk Assessment Model Point Value = 1 Point Value = 2 Point Value = 3 Point Value = 5 Age 41-60 Minor surgery BMI > 25 kg/m2 Swollen legs Varicose veins or History of unexplained or recurrent spontaneous Oral contraceptives or hormone replacement Sepsis (< 1 month) Serious lung disease, including pneumonia (< 1 month) Abnormal pulmonary function Acute myocardial infarction Congestive heart failure (< 1 month) History of inflammatory bowel disease Medical patient at bed rest Age 61-74 Arthroscopic surgery Major open surgery (> 45 min) Laparoscopic surgery (> 45 min) Malignancy Confined to bed (> 72 hours) Immobilizing plaster cast Central venous access Age >= 75 History of VTE Family history of VTE Factor V Leiden Prothrombin [id number] Lupus anticoagulant Anticardiolipin antibodies Elevated serum homocysteine Heparin-induced thrombocytopenia Other congenital or acquired thrombophilia Stroke (< 1 month) Elective arthroplasty Hip, pelvis, or leg fracture Acute spinal cord injury (< 1 month) Prophylaxis Regimen Total Risk Factor Score Risk Level Prophylaxis Regimen 0-1 Low Early ambulation 2 Moderate Order ONE of the following: *Sequential Compression Device (SCD) *Heparin 5000 units SQ BID 3-4 Higher Order ONE of the following medications: *Heparin 5000 units SQ TID *Enoxaparin/Lovenox 40 mg SQ daily (WT < 150 kg, CrCl > 30 mL/min) *Enoxaparin/Lovenox 30 mg SQ daily (WT < 150 kg, CrCl > 10-29 mL/min) *Enoxaparin/Lovenox 30 mg SQ BID (WT < 150 kg, CrCl > 30 mL/min) AND/OR *Sequential Compression Device (SCD) 5 or more Highest Order ONE of the following medications: *Heparin 5000 units SQ TID (Preferred with Epidurals) *Enoxaparin/Lovenox 40 mg SQ daily (WT < 150 kg, CrCl > 30 mL/min) *Enoxaparin/Lovenox 30 mg SQ daily (WT < 150 kg, CrCl > 10-29 mL/min) *Enoxaparin/Lovenox 30 mg SQ BID (WT < 150 kg, CrCl > 30 mL/min) AND *Sequential Compression Device (SCD) Assessment and Plan Problem List: (1) Sepsis ICD Code: A41.9 - Sepsis, unspecified organism (2) PNA (pneumonia) ICD Code: J18.9 - Pneumonia, unspecified organism (3) Tobacco abuse ICD Code: Z72.0 - Tobacco use Assessment and Plan A/P: 1. Sepsis: Temp 100.9, HR 95, WBC 27.2, Source-PNA. S/p Blood Cultures w/ no growth, will continue to monitor. Vanc/Cefepime. 2. PNA: Recent admit 08/13/17 for Sepsis/PNA, TB PCR negative, Blood Cultures negative, AFB negative, was on Rocephin/Zithro, states feeling better but persistent fever/leukocytosis, will Consult ID for further evaluation/ recommendations. DuoNeb prn, Symbicort, Mucinex. 3. Tobacco Abuse: Pt counselled. NicoDerm prn if needed. 4. DVT Prophylaxis: SCD/Teds 5. Social work for d/c planning as needed. 6. Case discussed w/ ER physician at length, labs/records/imaging reviewed by me. Physician Certification 2 Midnight Certification Type: Admission for Inpatient Services Order for Inpatient Services The services are ordered in accordance with Medicare regulations or non- Medicare payer requirements, as applicable. In the case of services not specified as inpatient-only, they are appropriately provided as inpatient services in accordance with the 2-midnight benchmark. Estimated LOS (days): 2 days is the estimated time the patient will need to remain in the hospital, assuming treatment plan goals are met and no additional complications. Post-Hospital Plan: Not yet determined Camila Khan MD August 15, 2017 23:32
[2017-08-15] MEDS: SODIUM CHLOR 0.9% 1000 ML INJ 1,000 ML IV SCH (23:43)
[2017-08-16] VITALS (7 sets, daily range): BP systolic 116–125; BP diastolic 60–72; PULSE 80–89; RESP 16–20; TEMP 97.7–99.2; O2SAT 92–96
[2017-08-16] MEDS ORDERED: VANCOMYCIN INJ 1,250 MG in SODIUM CHLOR 0.9% 250 ML INJ 250 ML IV SCH (01:00)
[2017-08-16 03:01] LABS: BILIRUBIN, URINE NEG (NEG); BLOOD, URINE NEG (NEG); GLUCOSE,URINE NEG (NEG); KETONE, URINE NEG (NEG); NITRITE,URINE NEG (NEG); PH, URINE 6.5 (5.0-8.5); SQUAMOUS EPITHELIAL CELL URINE <1 /hpf (0-5); URINE COLOR YELLOW (YELLW/STRAW); URINE LEUKOCYTE ESTERASE NEG (NEG)
[2017-08-16 06:27] LABS: AUTOMATED NEUTROPHIL # 19.5 TH/MM3 (1.8-7.7); BASOPHIL # 0.2 TH/MM3 (0-0.2); BASOPHIL % 0.9 % (0.0-2.0); EOSINOPHIL % 0.1 % (0.0-4.0); HEMOGLOBIN 9.7 GM/DL (13.0-17.0); LYMPH % 8.2 % (9.0-44.0); MEAN CELL VOLUME 87.9 FL (80.0-100.0); MEAN CORPUSCULAR HEMOGLOBIN 29.4 PG (27.0-34.0); MEAN CORPUSCULAR HGB CONC 33.5 % (32.0-36.0); MEAN PLATELET VOLUME 8.3 FL (7.0-11.0); MONO % 12.1 % (0.0-8.0); NEUT % 78.7 % (16.0-70.0); PLATELET COUNT 422 TH/MM3 (150-450); RED BLOOD COUNT 3.29 MIL/MM3 (4.50-5.90); WHITE BLOOD COUNT 24.7 TH/MM3 (4.0-11.0)
[2017-08-16 06:51] LABS: ALBUMIN 1.7 GM/DL (3.4-5.0); ALT (GPT) 33 U/L (12-78); AST (GOT) 35 U/L (15-37); BICARBONATE 25.4 MEQ/L (21.0-32.0); BLOOD UREA NITROGEN 11 MG/DL (7-18); CALCIUM 7.8 MG/DL (8.5-10.1); CHLORIDE 105 MEQ/L (98-107); CREATININE 0.86 MG/DL (0.60-1.30); GLOMERULAR FILTRATION RATE 109 ML/MIN (>89); GLUCOSE,RANDOM 99 MG/DL (74-106); SODIUM (NA) 139 MEQ/L (136-145)
[2017-08-16 06:53] LABS: ALKALINE PHOSPHATASE 146 U/L (45-117); TOTAL BILIRUBIN ADULT 0.7 MG/DL (0.2-1.0); TOTAL PROTEIN 6.2 GM/DL (6.4-8.2)
[2017-08-16 08:23] LABS: DOHLE BODIES PRESENT (NONE SEEN); TOXIC GRANULATION 1+ (NORMAL)
[2017-08-16] MEDS: DOCUSATE SODIUM 50 MG/SENNA 8.6 MG TAB PO SCH ×2 (09:00→19:54)
[2017-08-16] MEDS ORDERED: guaiFENesin E.R. 600 MG TAB PO SCH (09:00)
[2017-08-16] MEDS: SODIUM CHLORIDE 0.9% FLUSH 10 ML FLUSH IV FLUSH SCH ×2 (09:00→19:54)
--- NOTE | 2017-08-16 10:35 | PD.CONS ---
History of Present Illness Service Infectious disease Consult Requested By Dr Kirsty Khan Reason for Consult Evaluate patient with extensive right upper lobe pneumonia Primary Care Physician No Primary Care Physician Diagnoses: History of Present Illness Patient seen and examined. Records reviewed. Patient is a 62-year-old male, with no significant past medical history, presented to the hospital complaining of several week history of generalized weakness. He had significant generalized malaise, and body aches. He is soon then developed cough associated with some chest tightness which is usually when he coughs. He has been bringing up some yellowish phlegm, and has had some blood tinged sputum. He has had some sweats, but no documented fever, and no rigors. He denies any history of syncope, nausea or vomiting. He has had some loose stool, about 1-2 x a day, and took Peptobismol. Has not had any abdominal pain. He has experienced some pain in his upper back since he has been sick. He denies any urinary complaints. He lost 10 lbs since he has been sick due to poor oral intake. Patient lives in his home, and has been taking care of an older brother. He denies any prior exposure to tuberculosis. Patient has lived mostly on the [facility]. He has worked doing some sales. He was initially admitted July 24, and his chest x-ray showed extensive right upper lobe pneumonia. He had some low-grade temps. Mary antigen was negative. Blood cultures were negative. His sputum culture showed normal respiratory cristy. His WBC was in the 20,000s. During his hospitalization patient apparently went out for a walk, and claimed that he fell asleep. When he went back to his room he was told that he was discharged so he presented again and got readmitted August 15. He had sputum for AFB negative, TB PCR negative , and HIV Ab negative during his last admission. Patient stated that he has been working in his house especially the ceiling, and has been exposed to a lot of mold during his work. He started working on this back in May, and the work has been completed. Infectious disease consultation has been requested to assist with evaluation of this patient with extensive pneumonia. Review of Systems Constitutional: COMPLAINS OF: Fatigue, Fever, Weight loss, Change in appetite, Night Sweats Eyes: DENIES: Eye pain Ears, nose, mouth, throat: DENIES: Nasal discharge, Oral lesions, Throat pain, Ear Pain, Running Nose Respiratory: COMPLAINS OF: Cough, Hemoptysis, Sputum production, Shortness of breath Cardiovascular: COMPLAINS OF: Chest pain, DENIES: Palpitations, Syncope, Lower Extremity Edema Gastrointestinal: COMPLAINS OF: Diarrhea, DENIES: Abdominal pain, Nausea, Vomiting, Difficulty Swallowing Genitourinary: DENIES: Urgency, Dysuria Musculoskeletal: COMPLAINS OF: Muscle aches, Back pain Integumentary: DENIES: Pruritus, Rash Neurologic: DENIES: Headache, Localized weakness Psychiatric: DENIES: Hallucinations Past Family Social History Allergies: Coded Allergies: No Known Allergies (Verified Allergy, Unknown, 08/15/17) Past Medical History None Past Surgical History None Active Ordered Medications Current Medications Medications (Trade) Dose Ordered Sig/Otoniel Route Start Time Stop Time Status Last Admin Pharmacy Profile Note 0 ml @ 0 mls/hr UNSCH OTHER 08/15/17 23:30 Cefepime HCl 1000 mg/Sodium Chloride 100 ml @ 200 mls/hr Q12H IV 08/15/17 23:30 08/15/17 23:43 (Duoneb Neb) 1 ampule Q4HR NEB PRN NEB 08/15/17 23:30 (Mucinex Er) 600 mg BID PO 08/16/17 09:00 Sodium Chloride 1,000 ml @ 100 mls/hr Q10H IV 08/15/17 23:28 08/15/17 23:43 (NS Flush) 2 ml UNSCH PRN IV FLUSH 08/15/17 23:30 (NS Flush) 2 ml BID IV FLUSH 08/16/17 09:00 (Reglan Inj) 5 mg Q6H PRN IV PUSH 08/15/17 23:30 (Tylenol) 650 mg Q6H PRN PO 08/15/17 23:30 (Murray 5-325 Mg) 1 tab Q4H PRN PO 08/15/17 23:30 (Murray 10-325 Mg) 1 tab Q4H PRN PO 08/15/17 23:30 (Meri-Colace) 1 tab BID PO 08/16/17 09:00 (Milk Of Magnesia Liq) 30 ml Q12H PRN PO 08/15/17 23:30 (Senokot) 17.2 mg Q12H PRN PO 08/15/17 23:30 (Dulcolax Supp) 10 mg DAILY PRN RECTAL 08/15/17 23:30 (Lactulose Liq) 30 ml DAILY PRN PO 08/15/17 23:30 (Symbicort 160-4.5 Mcg Inh) 2 puff Q12HR INH 08/16/17 09:00 Vancomycin HCl 1250 mg/Sodium Chloride 262.5 ml @ 250 mls/hr Q12H IV 08/16/17 13:00 Family History Unremarkable Social History Tobacco use: used to smoke 2 ppd, now fdown to 1/2 ppd Alcohol use: 6 beers per week Illicit drug use: Denies Physical Exam Vital Signs Vital Signs Date Time Temp Pulse Resp B/P (MAP) Pulse Ox O2 Delivery O2 Flow Rate FiO2 08/16/17 08:00 98.6 88 18 125/69 (87) 92 08/16/17 04:33 99.2 85 17 116/67 (83) 96 08/16/17 04:00 84 08/16/17 01:04 99.1 89 16 116/64 (81) 94 08/15/17 20:36 99.0 99 18 129/62 (84) 97 Physical Exam GENERAL: Patient is a thin, well-developed male, awake and alert, not in respiratory distress. SKIN: Cool and dry. No generalized rash, no ecchymoses and no evidence of embolic lesions. HEAD: Atraumatic. Normocephalic. No temporal wasting, or tenderness. EYES: Foster conjunctiva. No petechia or hemorrhage. Pupils equal, round and reactive to light. Extraocular movements full and intact. No scleral icterus. No injection or drainage. EARS, NOSE AND THROAT: Nose without bleeding or purulent nasal discharge. No sinus tenderness. Mucous membranes pink and moist. No oral lesions noted. No exudate. No oral thrush. NECK: Trachea midline. Supple and not tender, no meningeal signs CARDIOVASCULAR: Regular rate and rhythm. No murmurs, rubs or gallops heard RESPIRATORY: Decreased breath sounds with diffuse wheezing. decreased vocal fremitus R side ABDOMEN: Soft, flat, non-tender, nondistended. Bowel sounds present and normoactive. No guarding. No rebound. No organomegaly. EXTREMITIES: No clubbing, cyanosis, or edema. No joint effusion, has good ROM. No calf tenderness. Well perfused and warm. NEUROLOGICAL: Awake and alert. Cranial nerves grossly intact. Motor grossly within normal limits. PSYCHIATRIC: Normal affect, calm and cooperative. LINE: No evidence of infection Laboratory Laboratory Tests Test 08/15/17 22:12 08/16/17 02:30 08/16/17 05:35 White Blood Count 27.2 24.7 Red Blood Count 3.47 3.29 Hemoglobin 10.5 9.7 Hematocrit 30.4 29.0 Mean Corpuscular Volume 87.6 87.9 Mean Corpuscular Hemoglobin 30.2 29.4 Mean Corpuscular Hemoglobin Concent 34.4 33.5 Red Cell Distribution Width 14.4 14.0 Platelet Count 418 422 Mean Platelet Volume 8.0 8.3 Neutrophils (%) (Auto) 80.7 78.7 Lymphocytes (%) (Auto) 8.2 8.2 Monocytes (%) (Auto) 10.8 12.1 Eosinophils (%) (Auto) 0.0 0.1 Basophils (%) (Auto) 0.3 0.9 Neutrophils # (Auto) 22.0 19.5 Lymphocytes # (Auto) 2.2 2.0 Monocytes # (Auto) 2.9 3.0 Eosinophils # (Auto) 0.0 0.0 Basophils # (Auto) 0.1 0.2 CBC Comment AUTO DIFF AUTO DIFF Differential Total Cells Counted 100 Neutrophils % (Manual) 83 Band Neutrophils % 3 Lymphocytes % 5 Monocytes % 9 Neutrophils # (Manual) 23.4 Differential Comment FINAL DIFF MANUAL AUTO DIFF CONFIRMED Toxic Granulation 1+ 1+ Toxic Vacuolation PRESENT Platelet Estimate NORMAL HIGH Platelet Morphology Comment NORMAL NORMAL Red Cell Morphology Comment NORMAL Blood Urea Nitrogen 10 11 Creatinine 1.10 0.86 Random Glucose 89 99 Total Protein 7.5 6.2 Albumin 2.2 1.7 Calcium Level 8.3 7.8 Alkaline Phosphatase 175 146 Aspartate Amino Transf (AST/SGOT) 47 35 Alanine Aminotransferase (ALT/SGPT) 42 33 Total Bilirubin 0.7 0.7 Sodium Level 138 139 Potassium Level 3.6 3.6 Chloride Level 101 105 Carbon Dioxide Level 26.6 25.4 Anion Gap 10 9 Estimat Glomerular Filtration Rate 82 109 Lactic Acid Level 1.1 Urine Color YELLOW Urine Turbidity CLEAR Urine pH 6.5 Urine Specific [employer] 1.010 Urine Protein TRACE Urine Glucose (UA) NEG Urine Ketones NEG Urine Occult Blood NEG Urine Nitrite NEG Urine Bilirubin NEG Urine Urobilinogen LESS THAN 2.0 Urine Leukocyte Esterase NEG Urine RBC LESS THAN 1 Urine WBC 1 Urine Squamous Epithelial Cells <1 Microscopic Urinalysis Comment CULT NOT INDICATED Urine Opiates Screen POS Urine Barbiturates Screen NEG Urine Amphetamines Screen NEG Urine Benzodiazepines Screen NEG Urine Cocaine Screen NEG Urine Cannabinoids Screen NEG Dohle Bodies PRESENT Date/Time Source Procedure Growth Status 08/16/17 02:40 Sputum Expectorated Sputum Gram Stain - Final Resulted 08/16/17 02:40 Sputum Expectorated Sputum Sputum Culture Pending Resulted Result Diagram: 08/16/17 0535 08/16/17 0535 Imaging RADIOLOGY STUDIES/FILMS REVIEWED Chest X-Ray 08/15/17 0000 Signed Impressions: CONCLUSION: Extensive right lung airspace disease Chest CT 08/13/17 0000 Signed Impressions: CONCLUSION: 1. Dense consolidation in the right upper lobe most consistent with severe pne umonia. 2. Mild pretracheal adenopathy. Chest X-Ray 08/12/172057 Signed Impressions: CONCLUSION: 1. Large airspace consolidation in the right upper lobe. Consider atypical inf ection/TB. Recommend follow-up to resolution. Assessment and Plan Assessment and Plan IMPRESSION Extensive RUL PNA - TB evaluation negative - bacterial, ?fungal or other atypical pathogen - ?malignancy Possible sepsis due to PNA Leukocytosis RECOMMENDATION IV Zosyn IV Vanco Follow C/S Pulmonary evaluation - consider bronch Check Aspergillus Ab Follow CBC MOnitor progress I will follow along with you Thank you for this consultation Faby Mccullough MD August 16, 2017 10:35
[2017-08-16] MEDS: PIPERACIL-TAZO 4.5 GM PREMIX 100 ML IV SCH ×3 (11:36→22:18)
[2017-08-16] MEDS: SODIUM CHLOR 0.9% 1000 ML INJ 1,000 ML IV SCH ×2 (11:36→19:53)
[2017-08-16] MEDS: BUDESONIDE-FORMOTEROL 160/4.5 MCG INHALER INH SCH ×2 (11:37→19:54)
--- NOTE | 2017-08-16 13:11 | HHI.PR ---
Subjective Remarks Nursing denies any deterioration since last night. Patient requesting cough syrup. Says his breathing is improved since admission. Objective Vital Signs Date Time Temp Pulse Resp B/P (MAP) Pulse Ox O2 Delivery O2 Flow Rate FiO2 08/16/17 12:00 97.8 80 17 121/60 (80) 95 08/16/17 08:00 98.6 88 18 125/69 (87) 92 08/16/17 04:33 99.2 85 17 116/67 (83) 96 08/16/17 04:00 84 08/16/17 01:04 99.1 89 16 116/64 (81) 94 08/15/17 20:36 99.0 99 18 129/62 (84) 97 I/O 08/15/17 08/15/17 08/15/17 08/16/17 08/16/17 08/16/17 07:00 15:00 23:00 07:00 15:00 23:00 Intake Total 842 ml 434 ml Output Total 600 ml Balance 242 ml 434 ml Intake Oral 480 ml IV Total 362 ml 434 ml Output Urine Total 600 ml Result Diagram: 08/16/17 0535 08/16/17 0535 Objective Remarks Coarse breath sounds bilaterally with good aeration, unlabored breathing Sitting up at the side of the bed, awake, alert A/P Assessment and Plan A/P: Sepsis: Source-PNA. S/p Blood Cultures 08/13/17 w/ no growth, will continue to monitor. PNA: Recent admit 08/13/17 for Sepsis/PNA, TB PCR negative, Blood Cultures negative , AFB negative. DuoNeb prn, Symbicort, Mucinex. Vanc and zosyn per ID. pulm consult placed by ID. DVT Prophylaxis: SCD/Robert Mijares MD August 16, 2017 13:11
[2017-08-16] MEDS: VANCOMYCIN INJ 1,250 MG in SODIUM CHLOR 0.9% 250 ML INJ 250 ML IV SCH (15:07)
[2017-08-16] MEDS: guaiFENesin/DEXTROMETHORPHAN 200 MG/20 MG/10 ML CUP PO PRN ×2 (15:07→22:23)
[2017-08-16] MEDS ORDERED: SODIUM CHLOR 0.45% 1000 ML INJ 1,000 ML IV SCH (16:00)
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
[2017-08-16 17:29] LABS: AUTOMATED NEUTROPHIL # 13.2 TH/MM3 (1.8-7.7); BASOPHIL # 0.2 TH/MM3 (0-0.2); BASOPHIL % 1.1 % (0.0-2.0); EOSINOPHIL % 0.3 % (0.0-4.0); HEMATOCRIT 29.5 % (39.0-51.0); HEMOGLOBIN 9.9 GM/DL (13.0-17.0); LYMPH % 11.8 % (9.0-44.0); MEAN CELL VOLUME 89.9 FL (80.0-100.0); MEAN CORPUSCULAR HEMOGLOBIN 30.1 PG (27.0-34.0); MEAN CORPUSCULAR HGB CONC 33.4 % (32.0-36.0); MEAN PLATELET VOLUME 8.6 FL (7.0-11.0); MONO % 7.5 % (0.0-8.0); MONOCYTE # 1.2 TH/MM3 (0-0.9); NEUT % 79.3 % (16.0-70.0); PLATELET COUNT 426 TH/MM3 (150-450); RED BLOOD COUNT 3.28 MIL/MM3 (4.50-5.90); RED CELL DISTRIBUTION WIDTH 14.2 % (11.6-17.2); WHITE BLOOD COUNT 16.7 TH/MM3 (4.0-11.0)
[2017-08-16 17:34] LABS: INTERNATIONAL NORMALIZED RATIO 1.2 RATIO
--- NOTE | 2017-08-16 21:23 | EKG ---
Date Performed: 08/16/2017 Time Performed: 20:27:34 PTAGE: 62 years EKG: Sinus rhythm WITH FREQUENT VENTRICULAR PREMATURE COMPLEXES ABNORMAL RHYTHM ECG PREVIOUS TRACING : 08/12/2017 21.18 No significant change from previous tracing noted. DOCTOR: Scott Prater Interpretating Date/Time 08/16/2017 21:22:57
[2017-08-17] VITALS (8 sets, daily range): BP systolic 122–144; BP diastolic 60–70; PULSE 70–91; RESP 17–22; TEMP 98.1–98.9; O2SAT 95–98
[2017-08-17] MEDS ORDERED: SODIUM CHLORID 0.9% 500 ML IV PRN (00:45)
[2017-08-17] MEDS ORDERED: LACTATED RINGER'S 1000 ML IV PRN (00:45)
[2017-08-17] MEDS ORDERED: POVIDONE IODINE 5% (ANTISEPSIS KIT) 4 APPLICATIONS EACH NARE PRN (00:45)
[2017-08-17] MEDS ORDERED: CHLORHEXIDINE GLUCONATE 2 % 1 PACK (2 CLOTHS) TOPICAL PRN (00:45)
[2017-08-17] MEDS: VANCOMYCIN INJ 1,250 MG in SODIUM CHLOR 0.9% 250 ML INJ 250 ML IV SCH ×2 (00:49→13:30)
[2017-08-17] MEDS: PIPERACIL-TAZO 4.5 GM PREMIX 100 ML IV SCH ×4 (04:15→23:53)
[2017-08-17] MEDS: SODIUM CHLOR 0.9% 1000 ML INJ 1,000 ML IV SCH ×2 (04:15→15:45)
[2017-08-17] MEDS: SODIUM CHLORIDE 0.9% FLUSH 10 ML FLUSH IV FLUSH SCH ×2 (09:00→20:16)
[2017-08-17] MEDS: DOCUSATE SODIUM 50 MG/SENNA 8.6 MG TAB PO SCH ×2 (09:00→20:17)
[2017-08-17] MEDS: BUDESONIDE-FORMOTEROL 160/4.5 MCG INHALER INH SCH ×2 (09:12→20:16)
--- NOTE | 2017-08-17 12:25 | HHI.PR ---
Subjective Remarks Nursing denies any deterioration since last night. Patient says his cough syrup has helped much. Objective Vital Signs Date Time Temp Pulse Resp B/P (MAP) Pulse Ox O2 Delivery O2 Flow Rate FiO2 08/17/17 08:00 98.9 70 18 133/61 (85) 95 08/17/17 04:00 98.5 81 22 126/69 (88) 95 08/17/17 00:01 81 08/17/17 00:00 98.2 88 20 122/68 (86) 97 08/16/17 20:00 98.3 84 20 125/72 (89) 95 08/16/17 16:00 97.7 81 17 120/67 (84) 96 I/O 08/16/17 08/16/17 08/16/17 08/17/17 08/17/17 08/17/17 07:00 15:00 23:00 07:00 15:00 23:00 Intake Total 842 ml 434 ml 1300 ml 350 ml Output Total 600 ml 1125 ml Balance 242 ml 434 ml 175 ml 350 ml Intake Oral 480 ml 950 ml 0 ml IV Total 362 ml 434 ml 350 ml 350 ml Output Urine Total 600 ml 1125 ml # Voids 3 # Bowel Movements 2 0 Result Diagram: 08/16/17 1648 08/16/17 0535 Objective Remarks Clear lungs bilaterally, sitting up in bed, unlabored breathing A/P Assessment and Plan A/P: Sepsis: sepsis element resolved as he is mildly leukocytotic with normalization of respiratory rate and heart rate. PNA: Recent admit 08/13/17 for Sepsis/PNA, TB PCR negative, Blood Cultures negative , AFB negative. DuoNeb prn, Symbicort, Mucinex. Vanc and zosyn per ID. Dr. Hayden plans for bronchoscopy today DVT Prophylaxis: SCD/Teds Robert Portillo MD August 17, 2017 12:25
[2017-08-17] MEDS ORDERED: PHARMACY ORDERED LAB ONE (12:45)
--- NOTE | 2017-08-17 15:09 | HHI.PR ---
Subjective Remarks He is coughing but has no fever. Will have bronchoscopy in am. Objective Vital Signs Date Time Temp Pulse Resp B/P (MAP) Pulse Ox O2 Delivery O2 Flow Rate FiO2 08/17/17 12:00 98.6 76 18 143/68 (93) 97 08/17/17 08:00 98.9 70 18 133/61 (85) 95 08/17/17 04:00 98.5 81 22 126/69 (88) 95 08/17/17 00:01 81 08/17/17 00:00 98.2 88 20 122/68 (86) 97 08/16/17 20:00 98.3 84 20 125/72 (89) 95 08/16/17 16:00 97.7 81 17 120/67 (84) 96 I/O 08/16/17 08/16/17 08/16/17 08/17/17 08/17/17 08/17/17 07:00 15:00 23:00 07:00 15:00 23:00 Intake Total 842 ml 434 ml 1300 ml 350 ml Output Total 600 ml 1125 ml Balance 242 ml 434 ml 175 ml 350 ml Intake Oral 480 ml 950 ml 0 ml IV Total 362 ml 434 ml 350 ml 350 ml Output Urine Total 600 ml 1125 ml # Voids 3 # Bowel Movements 2 0 Result Diagram: 08/16/17 1648 08/16/17 0535 Objective Remarks PHYSICAL EXAMINATION: GENERAL: This thinly built, middle-aged, male is alert and pale, in no acute distress. There is no clubbing. No cyanosis. HEENT: Head is normocephalic. Pupils were reactive. Tongue is moist. Throat is mildly injected. Ears, no inflammation. NECK: No bruits, no lymphadenopathy or thyromegaly. CHEST: Equal movements with percussion, note resonant throughout. Breath sounds diminished at the periphery, with occasional wheezes bilaterally, few crackles in the right mid and upper lung jacobs. HEART: The heart sounds were regular, S1, S2, with no murmur. No S3 gallop. ABDOMEN: Soft, scaphoid, without masses. No organomegaly, tenderness. Bowel sounds are active. EXTREMITIES: Decreased pulses. Reflexes are 1+, with no gross motor deficits. . SKIN: No lesions noted. Assessment and Plan Assessment and Plan PHYSICAL EXAMINATION: GENERAL: This thinly built, middle-aged, male is alert and pale, in no acute distress. There is marked clubbing. No cyanosis. IMPRESSION: 1. Extensive right upper lobe pneumonia, etiology undetermined. 2. Chronic obstructive pulmonary disease with emphysema. 3. Rule out malignancy. 4. Nicotine dependency. Plan : 1. Continue antibiotics 2. O2 2L PRN 3. Bronchoscopy in am. 4. Duonebs qid . 5. PFT this week. Timoteo Son MD August 17, 2017 15:09
[2017-08-17] MEDS: guaiFENesin/DEXTROMETHORPHAN 200 MG/20 MG/10 ML CUP PO PRN ×2 (17:19→23:53)
[2017-08-18] VITALS (7 sets, daily range): BP systolic 109–147; BP diastolic 57–72; PULSE 74–90; RESP 18–20; TEMP 97.9–99.9; O2SAT 90–97
[2017-08-18] MEDS: VANCOMYCIN INJ 1,750 MG in SODIUM CHLORID 0.9% 500 ML INJ 500 ML IV SCH ×2 (02:33→13:48)
[2017-08-18] MEDS: SODIUM CHLOR 0.9% 1000 ML INJ 1,000 ML IV SCH ×3 (02:37→20:21)
[2017-08-18] MEDS: PIPERACIL-TAZO 4.5 GM PREMIX 100 ML IV SCH ×4 (06:06→23:54)
[2017-08-18 07:47] LABS: CREATININE 0.74 MG/DL (0.60-1.30)
[2017-08-18] MEDS: BUDESONIDE-FORMOTEROL 160/4.5 MCG INHALER INH SCH ×2 (09:00→20:22)
[2017-08-18] MEDS: DOCUSATE SODIUM 50 MG/SENNA 8.6 MG TAB PO SCH ×2 (09:00→20:21)
[2017-08-18] MEDS: SODIUM CHLORIDE 0.9% FLUSH 10 ML FLUSH IV FLUSH SCH ×2 (09:00→20:20)
[2017-08-18] MEDS ORDERED: RESP: ALBUTEROL CONC 2.5 MG/0.5 ML NEB ONE (10:39)
[2017-08-18] MEDS ORDERED: RESP: LIDOCAINE HCL 4% PF 5 ML NEB ONE (10:39)
[2017-08-18] MEDS ORDERED: RESP: ALBUTEROL 2.5 MG/3 ML NEB (PRN) NEB (11:45)
--- NOTE | 2017-08-18 12:15 | MP ---
cc: Timoteo Son MD DATE OF OPERATION: 08/18/2017 DATE OF PROCEDURE: 08/18/2017 PROCEDURE PERFORMED: Fiberoptic bronchoscopy with transbronchial lung biopsy and brushings and washings. PREOPERATIVE DIAGNOSIS: Right upper lobe infiltrate. POSTOPERATIVE DIAGNOSIS: Right upper lobe infiltrate. ANESTHESIA: General with intubation. SURGEON: Timoteo Son MD PROCEDURE AND FINDINGS: The patient was intubated under general anesthesia, following which the Olympus IT 180 bronchoscope was used to visualize the bronchi. The scope was advanced through the endotracheal tube into the trachea. Trachea and tirso appeared normal. Scope was then advanced into the right mainstem and right upper lobe segmental bronchi. The right upper lobe anterior segmental bronchus was edematous, had mucosal ridging and had thick mucoid secretions coming out of the lumen, and there was moderate endobronchitis observed. Saline washings were done until clear and brushings were done for cytology and micro. Transbronchial biopsies were done from the right upper lobe and these were sent for pathology and cytology. Saline washings and lavage were done from the right upper lobe. The scope was then advanced into the right middle lobe segmental bronchi. These bronchi demonstrated no gross endobronchial lesion. Saline washings were done. Next, the right lower lobe segmental bronchi were visualized, which demonstrated no endobronchial lesions. Saline washings and lavage were done. The scope was then advanced into the left mainstem and left upper lobe segmental bronchi. These bronchi demonstrated mild endobronchitis with mucoid secretions. These were suctioned out. Saline washings were done. No endobronchial lesions were seen. Next, the left lower lobe segmental bronchi were visualized and there were mucoid secretions, which were suctioned out. No endobronchial lesions were seen here. Saline washings were done and the procedure was then terminated. The patient tolerated the procedure well. Timoteo Son MD VJD/ZHANG , 11:46 AM , 12:14 PM
--- NOTE | 2017-08-18 12:39 | RADRPT ---
EXAM DATE: 08/18/2017 12:33 PM EDT AGE/SEX: 62 years / Male INDICATIONS: R/o pneumothorax, post bronchoscopy. CLINICAL DATA: This is the patient's initial encounter. Patient reports that signs and symptoms have been present for 1 day and indicates a pain score of 0/10. MEDICAL/SURGICAL HISTORY: . hx of pneumonia, smokes, short of breath. . COMPARISON: [facility] [place], CHEST PA & LAT, 08/15/2017. . FINDINGS: There is dense consolidation in the upper right lung similar to August 15. There may be some loculated fluid in the upper right lateral hemithorax. Left lung remains relatively clear. No pneumothorax. Hea rt size normal. CONCLUSION: No pneumothorax noted post bronchoscopy. Dense consolidation in the upper right lung remains with que stionable loculated pleural fluid. Electronically signed by: Daniel Gutierrez MD 08/18/2017 12:38 PM EDT
--- NOTE | 2017-08-18 12:51 | HHI.PR ---
Subjective Remarks Nursing denies any deterioration since last night. Patient actually had his bronchoscopy performed today. Objective Vital Signs Date Time Temp Pulse Resp B/P (MAP) Pulse Ox O2 Delivery O2 Flow Rate FiO2 08/18/17 12:30 98.5 78 16 113/61 (78) 95 Room Air 08/18/17 12:15 79 20 108/61 (77) 98 08/18/17 12:00 79 16 111/63 (79) 98 08/18/17 11:56 98.5 84 28 104/58 (73) 98 Nasal Cannula 2 08/18/17 08:00 97.9 74 18 134/72 (92) 97 08/18/17 08:00 74 08/18/17 04:08 82 08/18/17 04:00 99.3 81 19 130/62 (84) 95 08/18/17 00:00 99.9 90 19 147/71 (96) 97 08/17/17 23:45 91 08/17/17 20:00 98.1 82 17 131/60 (83) 97 08/17/17 16:00 98.4 80 19 144/70 (94) 98 I/O 08/17/17 08/17/17 08/17/17 08/18/17 08/18/17 08/18/17 07:00 15:00 23:00 07:00 15:00 23:00 Intake Total 350 ml 100 ml 120 ml 700 ml Balance 350 ml 100 ml 120 ml 700 ml Intake Oral 0 ml 120 ml 0 ml IV Total 350 ml 100 ml 700 ml # Voids 3 3 3 # Bowel Movements 0 3 0 Result Diagram: 08/16/17 1648 08/18/17 0624 Objective Remarks Slightly somnolent as patient is immediately postprocedure Unlabored breathing, is holding barf bag at the bedside A/P Assessment and Plan A/P: PNA: Recent admit 08/13/17 for Sepsis/PNA, TB PCR negative, Blood Cultures negative , AFB negative. DuoNeb prn, Symbicort, Mucinex. Vanc and zosyn per ID. Dr. Hayden following, status post bronchoscopy DVT Prophylaxis: SCD/Teds Discharge Planning Will await cytology/BAL results. Clearance for discharge from infectious disease and pulmonology Robert Portillo MD August 18, 2017 12:51
[2017-08-18] MEDS: guaiFENesin/DEXTROMETHORPHAN 200 MG/20 MG/10 ML CUP PO PRN ×2 (13:15→20:28)
[2017-08-18] MEDS ORDERED: DO NOT ADM ANY ANTICOAGULANT DRUGS PRN (13:45)
[2017-08-19] VITALS (8 sets, daily range): BP systolic 134–148; BP diastolic 60–74; PULSE 78–110; RESP 16–20; TEMP 97.4–98.5; O2SAT 90–98
[2017-08-19] MEDS: VANCOMYCIN INJ 1,750 MG in SODIUM CHLORID 0.9% 500 ML INJ 500 ML IV SCH ×2 (00:46→13:19)
[2017-08-19] MEDS: guaiFENesin/DEXTROMETHORPHAN 200 MG/20 MG/10 ML CUP PO PRN ×3 (05:37→21:28)
[2017-08-19] MEDS: PIPERACIL-TAZO 4.5 GM PREMIX 100 ML IV SCH ×4 (05:37→21:28)
[2017-08-19] MEDS: SODIUM CHLOR 0.9% 1000 ML INJ 1,000 ML IV SCH ×2 (05:38→21:28)
[2017-08-19] MEDS: BUDESONIDE-FORMOTEROL 160/4.5 MCG INHALER INH SCH ×2 (08:17→21:31)
[2017-08-19] MEDS: DOCUSATE SODIUM 50 MG/SENNA 8.6 MG TAB PO SCH ×2 (08:18→21:29)
[2017-08-19] MEDS: SODIUM CHLORIDE 0.9% FLUSH 10 ML FLUSH IV FLUSH SCH ×2 (08:18→21:28)
--- NOTE | 2017-08-19 11:24 | HHI.IDPN ---
Subjective Subjective Remarks Patient is a 62-year-old male, with no significant past medical history, presented to the hospital complaining of several week history of generalized weakness. He had significant generalized malaise, and body aches. He is soon then developed cough associated with some chest tightness which is usually when he coughs. He has been bringing up some yellowish phlegm, and has had some blood tinged sputum. He has had some sweats, but no documented fever, and no rigors. He denies any history of syncope, nausea or vomiting. He has had some loose stool, about 1-2 x a day, and took Peptobismol. Has not had any abdominal pain. He has experienced some pain in his upper back since he has been sick. He denies any urinary complaints. He lost 10 lbs since he has been sick due to poor oral intake. Patient lives in his home, and has been taking care of an older brother. He denies any prior exposure to tuberculosis. Patient has lived mostly on the [facility]. He has worked doing some sales. He was initially admitted July 24, and his chest x-ray showed extensive right upper lobe pneumonia. He had some low-grade temps. Mary antigen was negative. Blood cultures were negative. His sputum culture showed normal respiratory cristy. His WBC was in the 20,000s. During his hospitalization patient apparently went out for a walk, and claimed that he fell asleep. When he went back to his room he was told that he was discharged so he presented again and got readmitted August 15. He had sputum for AFB negative, TB PCR negative , and HIV Ab negative during his last admission. Patient stated that he has been working in his house especially the ceiling, and has been exposed to a lot of mold during his work. He started working on this back in May, and the work has been completed. Infectious disease consultation has been requested to assist with evaluation of this patient with extensive pneumonia. Notes reviewed Temps ok Had bronch yesterday Bronch results pending No new complaint Antibiotics Zosyn Vancomycin Current Medications Medications (Trade) Dose Ordered Sig/Otoniel Route Start Time Stop Time Status Last Admin Pharmacy Profile Note 0 ml @ 0 mls/hr UNSCH OTHER 08/15/17 23:30 (Duoneb Neb) 1 ampule Q4HR NEB PRN NEB 08/15/17 23:30 Sodium Chloride 1,000 ml @ 100 mls/hr Q10H IV 08/15/17 23:28 08/19/17 05:38 (NS Flush) 2 ml UNSCH PRN IV FLUSH 08/15/17 23:30 (NS Flush) 2 ml BID IV FLUSH 08/16/17 09:00 08/18/17 09:00 (Reglan Inj) 5 mg Q6H PRN IV PUSH 08/15/17 23:30 (Tylenol) 650 mg Q6H PRN PO 08/15/17 23:30 (Lane 5-325 Mg) 1 tab Q4H PRN PO 08/15/17 23:30 (Lane 10-325 Mg) 1 tab Q4H PRN PO 08/15/17 23:30 (Meri-Colace) 1 tab BID PO 08/16/17 09:00 (Milk Of Magnesia Liq) 30 ml Q12H PRN PO 08/15/17 23:30 (Senokot) 17.2 mg Q12H PRN PO 08/15/17 23:30 (Dulcolax Supp) 10 mg DAILY PRN RECTAL 08/15/17 23:30 (Lactulose Liq) 30 ml DAILY PRN PO 08/15/17 23:30 (Symbicort 160-4.5 Mcg Inh) 2 puff Q12HR INH 08/16/17 09:00 08/19/17 08:17 Piperacillin Sod/ Tazobactam Sod 100 ml @ 200 mls/hr Q6H IV 08/16/17 11:00 08/19/17 05:37 (Robitussin Dm 200-20 Mg/10 ml Liq) 10 ml Q6H PRN PO 08/16/17 13:15 08/19/17 05:37 Sodium Chloride 1,000 ml @ 0 mls/hr Q0M IV 08/16/17 16:00 Lactated Ringer's 1,000 ml @ 30 mls/hr Q24H PRN IV 08/17/17 00:45 08/20/17 00:44 Sodium Chloride 500 ml @ 30 mls/hr [id number] PRN IV 08/17/17 00:45 08/20/17 00:44 (Betadine 5% Antisepsis Kit) 1 applic CARD LACER PRN EACH NARE 08/17/17 00:45 08/20/17 00:44 (Chlorhexidine 2% Cloth) 3 pack CARD LACER PRN TOPICAL 08/17/17 00:45 08/20/17 00:44 Vancomycin HCl 1750 mg/Sodium Chloride 517.5 ml @ 250 mls/hr Q12H IV 08/18/17 01:00 08/19/17 00:46 ([facility] Ordered Lab Info) SPECIFIC LAB TO BE JANET... ONCE ONCE .XX 08/19/17 12:45 08/19/17 12:46 (Albuterol Neb) 2.5 mg UNSCH X1 PRN NEB 08/18/17 11:45 08/19/17 11:44 ([facility] Nursing Information) ALL NURSING DEPARTME... UNSCH PRN .XX 08/18/17 13:45 08/19/17 13:44 Lines PIV no evidence of infection Past Medical History None Allergies: Coded Allergies: No Known Allergies (Verified Allergy, Unknown, 08/15/17) Objective . Vital Signs Date Time Temp Pulse Resp B/P (MAP) Pulse Ox O2 Delivery O2 Flow Rate FiO2 08/19/17 11:14 96 08/19/17 08:00 97.8 78 17 136/60 (85) 96 08/19/17 04:00 97.8 91 18 137/72 (93) 97 08/19/17 00:00 98.5 87 20 136/72 (93) 95 08/19/17 00:00 90 08/18/17 20:00 99.5 80 20 129/61 (83) 90 08/18/17 19:24 78 08/18/17 16:00 98.6 82 20 109/57 (74) 96 08/18/17 12:30 98.5 78 16 113/61 (78) 95 Room Air 08/18/17 12:15 79 20 108/61 (77) 98 08/18/17 12:00 79 16 111/63 (79) 98 08/18/17 11:56 98.5 84 28 104/58 (73) 98 Nasal Cannula 2 . Laboratory Tests Test 08/18/17 06:24 Creatinine 0.74 MG/DL Estimat Glomerular Filtration Rate 130 ML/MIN Microbiology Date/Time Source Procedure Growth Status 08/18/17 11:30 Bronchial Washings Right Upper Lobe Fungal Smear Pending Received 08/18/17 11:30 Bronchial Washings Right Upper Lobe Fungal Culture Pending Received 08/18/17 11:30 Bronchial Brushings Right Upper Lobe Fungal Smear - Final NO FUNGAL ELEMENTS SEEN. Resulted 08/18/17 11:30 Bronchial Brushings Right Upper Lobe Fungal Culture Pending Resulted 08/18/17 11:30 Bronchial Washings Right Upper Lobe Acid Fast Stain Pending Received 08/18/17 11:30 Bronchial Washings Right Upper Lobe Mycobacterial Culture Pending Received 08/18/17 11:30 Bronchial Brushings Right Upper Lobe Acid Fast Stain Pending Received 08/18/17 11:30 Bronchial Brushings Right Upper Lobe Mycobacterial Culture Pending Received 08/18/17 11:30 Bronchial Brushings Right Upper Lobe Bronchial Aspirate Culture Pending Received 08/18/17 11:30 Bronchial Washings Right Upper Lobe Gram Stain - Final Resulted 08/18/17 11:30 Bronchial Washings Right Upper Lobe Bronchial Culture Pending Resulted Imaging Chest X-Ray 08/18/17 0000 Signed Impressions: CONCLUSION: No pneumothorax noted post bronchoscopy. Dense consolidation in the upper right lung remains with questionable loculated pleural fluid. Chest CT 08/13/17 0000 Signed Impressions: CONCLUSION: 1. Dense consolidation in the right upper lobe most consistent with severe pne umonia. 2. Mild pretracheal adenopathy. Chest X-Ray 08/12/172057 Signed Impressions: CONCLUSION: 1. Large airspace consolidation in the right upper lobe. Consider atypical inf ection/TB. Recommend follow-up to resolution. Physical Exam GENERAL: Patient is a thin, well-developed male, awake and alert, not in respiratory distress. SKIN: Cool and dry. No generalized rash, no ecchymoses and no evidence of embolic lesions. HEAD: Atraumatic. Normocephalic. No temporal wasting, or tenderness. EYES: [place] conjunctiva. No petechia or hemorrhage. Pupils equal, round and reactive to light. Extraocular movements full and intact. No scleral icterus. No injection or drainage. EARS, NOSE AND THROAT: Nose without bleeding or purulent nasal discharge. No sinus tenderness. Mucous membranes pink and moist. No oral lesions noted. No exudate. No oral thrush. NECK: Trachea midline. Supple and not tender, no meningeal signs CARDIOVASCULAR: Regular rate and rhythm. No murmurs, rubs or gallops heard RESPIRATORY: Decreased breath sounds R side. Has decreased vocal fremitus R side ABDOMEN: Soft, flat, non-tender, nondistended. Bowel sounds present and normoactive. No guarding. No rebound. No organomegaly. EXTREMITIES: No clubbing, cyanosis, or edema. No joint effusion, has good ROM. No calf tenderness. Well perfused and warm. NEUROLOGICAL: Non-focal. PSYCHIATRIC: Normal affect, calm and cooperative. LINE: No evidence of infection Assessment & Plan Remarks IMPRESSION Extensive RUL PNA - TB evaluation negative - bacterial, ?fungal or other atypical pathogen - ?malignancy Possible sepsis due to PNA, better Leukocytosis RECOMMENDATION Continue IV Zosyn Continue IV Vanco Follow C/S, bronch and path report Check Aspergillus Ab Follow CBC Monitor progress Faby Mccullough MD August 19, 2017 11:24
--- NOTE | 2017-08-19 11:40 | HHI.PR ---
Subjective Remarks Patient overnight. He is fairly well is in bed, he is very pleasant.. He is able to ambulate to the bathroom without any problems. No fever or chills overnight no nausea vomiting no diarrhea constipation. Objective Vitals Vital Signs Date Time Temp Pulse Resp B/P (MAP) Pulse Ox O2 Delivery O2 Flow Rate FiO2 08/19/17 11:14 96 08/19/17 08:00 97.8 78 17 136/60 (85) 96 08/19/17 04:00 97.8 91 18 137/72 (93) 97 08/19/17 00:00 98.5 87 20 136/72 (93) 95 08/19/17 00:00 90 08/18/17 20:00 99.5 80 20 129/61 (83) 90 08/18/17 19:24 78 08/18/17 16:00 98.6 82 20 109/57 (74) 96 08/18/17 12:30 98.5 78 16 113/61 (78) 95 Room Air 08/18/17 12:15 79 20 108/61 (77) 98 08/18/17 12:00 79 16 111/63 (79) 98 08/18/17 11:56 98.5 84 28 104/58 (73) 98 Nasal Cannula 2 I/O 08/18/17 08/18/17 08/18/17 08/19/17 08/19/17 08/19/17 06:59 14:59 22:59 06:59 14:59 22:59 Intake Total 700 ml 2600 ml 1957.5 ml Output Total 600 ml Balance 700 ml 2600 ml 1357.5 ml Intake Oral 0 ml 1600 ml 240 ml IV Total 700 ml 1000 ml 1717.5 ml Output Urine Total 600 ml # Voids 3 4 # Bowel Movements 0 1 Result Diagram: 08/16/17 1648 08/18/17 0624 Imaging Last Impressions Chest X-Ray 08/18/17 0000 Signed Impressions: CONCLUSION: No pneumothorax noted post bronchoscopy. Dense consolidation in the upper right lung remains with questionable loculated pleural fluid. Objective Remarks GENERAL: 62 yo male, appears in nad. CARDIOVASCULAR: Regular rate and rhythm. RESPIRATORY: No accessory muscle use. Clear to auscultation. Breath sounds equal bilaterally. GASTROINTESTINAL: Abdomen soft, non-tender, nondistended. Hepatic and splenic margins not palpable. MUSCULOSKELETAL: Extremities without clubbing, cyanosis, or edema. No obvious deformities. NEUROLOGICAL: Awake and alert. No obvious cranial nerve deficits. Motor grossly within normal limits. Five out of 5 muscle strength in the arms and legs. Normal speech. PSYCHIATRIC: Appropriate mood and affect; insight and judgment normal. A/P Problem List: (1) Sepsis ICD Code: A41.9 - Sepsis, unspecified organism (2) PNA (pneumonia) ICD Code: J18.9 - Pneumonia, unspecified organism (3) Tobacco abuse ICD Code: Z72.0 - Tobacco use Assessment and Plan PNA: Recent admit 08/13/17 for Sepsis/PNA, TB PCR negative, Blood Cultures negative, AFB negative. DuoNeb prn, Symbicort, Mucinex. Vanc and zosyn per ID. Dr. Hayden following, status post bronchoscopy. Cytology/BAL results pending. DVT Prophylaxis: SCD/Teds Discharge Planning Await cytology/BAL results. Clearance for discharge from infectious disease and pulmonology Discussed with the patient, nurse, Dr Mccullough ID specialist Prema Moreau MD August 19, 2017 11:40
[2017-08-19] MEDS ORDERED: PHARMACY ORDERED LAB ONE (12:45)
--- NOTE | 2017-08-19 18:48 | HHI.PR ---
Subjective Remarks He is better today. Sputum is clear. Bronch biopsy shows inflammation. AFB smear negative . Cultures pending Objective Vital Signs Date Time Temp Pulse Resp B/P (MAP) Pulse Ox O2 Delivery O2 Flow Rate FiO2 08/19/17 16:00 98.2 86 17 134/65 (88) 98 08/19/17 12:00 97.4 84 18 141/67 (91) 97 08/19/17 11:14 96 08/19/17 08:00 97.8 78 17 136/60 (85) 96 08/19/17 04:00 97.8 91 18 137/72 (93) 97 08/19/17 00:00 98.5 87 20 136/72 (93) 95 08/19/17 00:00 90 08/18/17 20:00 99.5 80 20 129/61 (83) 90 08/18/17 19:24 78 I/O 08/18/17 08/18/17 08/18/17 08/19/17 08/19/17 08/19/17 07:00 15:00 23:00 07:00 15:00 23:00 Intake Total 700 ml 2600 ml 1957.5 ml 100 ml 1237 ml Output Total 600 ml 600 ml Balance 700 ml 2600 ml 1357.5 ml 100 ml 637 ml Intake Oral 0 ml 1600 ml 240 ml 720 ml IV Total 700 ml 1000 ml 1717.5 ml 100 ml 517 ml Output Urine Total 600 ml 600 ml # Voids 3 4 # Bowel Movements 0 1 1 Result Diagram: 08/16/17 1648 08/18/17 0624 Objective Remarks PHYSICAL EXAMINATION: GENERAL: This thinly built, middle-aged, male is alert and in no acute distress. There is no clubbing. No cyanosis. HEENT: Head is normocephalic. Pupils were reactive. Tongue is moist. Throat is mildly injected. Ears, no inflammation. NECK: No bruits, no lymphadenopathy or thyromegaly. CHEST: Equal movements with percussion, note resonant throughout. Breath sounds diminished at the periphery, with occasional wheezes bilaterally. HEART: The heart sounds were regular, S1, S2, with no murmur. No S3 gallop. ABDOMEN: Soft, scaphoid, without masses. No organomegaly, tenderness. Bowel sounds are active. EXTREMITIES: Decreased pulses. Reflexes are 1+, with no gross motor deficits. . SKIN: No lesions noted. Assessment and Plan Assessment and Plan PHYSICAL EXAMINATION: GENERAL: This thinly built, middle-aged, male is alert and pale, in no acute distress. There is marked clubbing. No cyanosis. IMPRESSION: 1. Extensive right upper lobe pneumonia, etiology undetermined. 2. Chronic obstructive pulmonary disease with emphysema. 3. Rule out malignancy. 4. Nicotine dependency. Plan : 1. Continue antibiotics per ID 2. O2 2L PRN 3. IS q3h. 4. Duonebs qid . 5. CBC,BMP,CXR Timoteo Son MD August 19, 2017 18:48
[2017-08-20] VITALS (9 sets, daily range): BP systolic 125–151; BP diastolic 60–69; PULSE 70–82; RESP 16–20; TEMP 97.7–98.3; O2SAT 94–98
[2017-08-20] MEDS: VANCOMYCIN INJ 1,750 MG in SODIUM CHLORID 0.9% 500 ML INJ 500 ML IV SCH ×2 (00:41→13:10)
[2017-08-20] MEDS: guaiFENesin/DEXTROMETHORPHAN 200 MG/20 MG/10 ML CUP PO PRN (05:31)
[2017-08-20] MEDS: PIPERACIL-TAZO 4.5 GM PREMIX 100 ML IV SCH ×4 (05:31→22:08)
[2017-08-20] MEDS: SODIUM CHLOR 0.9% 1000 ML INJ 1,000 ML IV SCH ×2 (05:31→13:10)
[2017-08-20 06:18] LABS: CREATININE 0.92 MG/DL (0.60-1.30)
--- NOTE | 2017-08-20 06:58 | RADRPT ---
EXAM DATE: 08/20/2017 6:43 AM EDT AGE/SEX: 62 years / Male INDICATIONS: Short of breath, evaluate infiltrate CLINICAL DATA: This is the patient's subsequent encounter. Patient reports that signs and symptoms h ave been present for 4 - 6 days and indicates a pain score of 0/10. MEDICAL/SURGICAL HISTORY: Sepsis. pneumonia . bronchoscopy COMPARISON: [facility] [place], CHEST SINGLE AP, 08/18/2017. . FINDINGS: There is no change in dense right upper lobe consolidation although possibly slightly improved in the perihilar location. The rest of the examination has not changed. CONCLUSION: Possible mild improvement in right upper lung consolidation. Electronically signed by: Laura Carias MD 08/20/2017 6:57 AM EDT
[2017-08-20] MEDS: SODIUM CHLORIDE 0.9% FLUSH 10 ML FLUSH IV FLUSH SCH ×2 (09:00→21:00)
[2017-08-20] MEDS: DOCUSATE SODIUM 50 MG/SENNA 8.6 MG TAB PO SCH ×2 (09:00→21:00)
--- NOTE | 2017-08-20 09:04 | HHI.PR ---
Subjective Remarks In bed, sleepy however in nad. No fever ro chills. Sattign well on room air. No n/v/d/c. Denies chest pain . Objective Vitals Vital Signs Date Time Temp Pulse Resp B/P (MAP) Pulse Ox O2 Delivery O2 Flow Rate FiO2 08/20/17 08:00 98.0 77 16 137/67 (90) 94 08/20/17 04:00 98.3 70 18 148/69 (95) 97 08/20/17 00:24 82 08/20/17 00:00 98.3 80 18 129/60 (83) 96 08/19/17 20:07 79 08/19/17 20:00 98.3 88 18 148/74 (98) 97 08/19/17 16:00 98.2 86 17 134/65 (88) 98 08/19/17 12:00 97.4 84 18 141/67 (91) 97 08/19/17 11:14 96 I/O 08/19/17 08/19/17 08/19/17 08/20/17 08/20/17 08/20/17 07:00 15:00 23:00 07:00 15:00 23:00 Intake Total 1957.5 ml 100 ml 2337 ml 517.5 ml 100 ml Output Total 600 ml 900 ml Balance 1357.5 ml 100 ml 1437 ml 517.5 ml 100 ml Intake Oral 240 ml 720 ml IV Total 1717.5 ml 100 ml 1617 ml 517.5 ml 100 ml Output Urine Total 600 ml 900 ml # Voids 3 # Bowel Movements 1 2 Result Diagram: 08/16/17 1648 08/20/17 0400 Other Results Last Impressions Chest X-Ray 08/20/17 0600 Signed Impressions: CONCLUSION: Possible mild improvement in right upper lung consolidation. Objective Remarks GENERAL: 62 yo male, appears in nad. CARDIOVASCULAR: Regular rate and rhythm. RESPIRATORY: No accessory muscle use. Clear to auscultation. Breath sounds equal bilaterally. GASTROINTESTINAL: Abdomen soft, non-tender, nondistended. Hepatic and splenic margins not palpable. MUSCULOSKELETAL: Extremities without clubbing, cyanosis, or edema. No obvious deformities. NEUROLOGICAL: Awake and alert. No obvious cranial nerve deficits. Motor grossly within normal limits. Five out of 5 muscle strength in the arms and legs. Normal speech. PSYCHIATRIC: Appropriate mood and affect; insight and judgment normal. A/P Problem List: (1) Sepsis ICD Code: A41.9 - Sepsis, unspecified organism (2) PNA (pneumonia) ICD Code: J18.9 - Pneumonia, unspecified organism (3) Tobacco abuse ICD Code: Z72.0 - Tobacco use Assessment and Plan PNA: Recent admit 08/13/17 for Sepsis/PNA, TB PCR negative, Blood Cultures negative, AFB negative. DuoNeb prn, Symbicort, Mucinex. Vanc and zosyn per ID. Dr. Hayden following, status post bronchoscopy. Cytology/BAL results pending. DVT Prophylaxis: SCD/Teds Discharge Planning Await cytology/BAL results. Clearance for discharge from infectious disease and pulmonology Discussed with the patient, nurse Prema Moreau MD August 20, 2017 09:04
[2017-08-20] MEDS: BUDESONIDE-FORMOTEROL 160/4.5 MCG INHALER INH SCH ×2 (09:39→21:00)
--- NOTE | 2017-08-20 18:26 | HHI.PR ---
Subjective Remarks He is improving.. Sputum is clear.No fever Bronch biopsy shows inflammation. AFB smear negative . Cultures pending Objective Vital Signs Date Time Temp Pulse Resp B/P (MAP) Pulse Ox O2 Delivery O2 Flow Rate FiO2 08/20/17 16:00 98.1 74 16 131/62 (85) 94 08/20/17 12:00 97.7 80 16 125/67 (86) 96 08/20/17 08:00 98.0 77 16 137/67 (90) 94 08/20/17 07:46 77 08/20/17 04:00 98.3 70 18 148/69 (95) 97 08/20/17 00:24 82 08/20/17 00:00 98.3 80 18 129/60 (83) 96 08/19/17 20:07 79 08/19/17 20:00 98.3 88 18 148/74 (98) 97 I/O 08/19/17 08/19/17 08/19/17 08/20/17 08/20/17 08/20/17 07:00 15:00 23:00 07:00 15:00 23:00 Intake Total 1957.5 ml 100 ml 2337 ml 517.5 ml 100 ml 900 ml Output Total 600 ml 900 ml 1000 ml Balance 1357.5 ml 100 ml 1437 ml 517.5 ml 100 ml -100 ml Intake Oral 240 ml 720 ml 900 ml IV Total 1717.5 ml 100 ml 1617 ml 517.5 ml 100 ml Output Urine Total 600 ml 900 ml 1000 ml # Voids 3 # Bowel Movements 1 2 0 Result Diagram: 08/16/17 1648 08/20/17 0400 Objective Remarks PHYSICAL EXAMINATION: GENERAL: This thinly built, middle-aged, male is alert and in no acute distress. There is no clubbing. No cyanosis. HEENT: Head is normocephalic. Pupils were reactive. Tongue is moist. Throat is mildly clear. Ears, no inflammation. NECK: No bruits, no lymphadenopathy or thyromegaly. CHEST: Equal movements with percussion, note resonant throughout. Breath sounds diminished at the periphery, with occasional wheezes bilaterally. HEART: The heart sounds were regular, S1, S2, with no murmur. No S3 gallop. ABDOMEN: Soft, scaphoid, without masses. No organomegaly, tenderness. Bowel sounds are active. EXTREMITIES: Decreased pulses. Reflexes are 1+, with no gross motor deficits. . SKIN: No lesions noted. Assessment and Plan Assessment and Plan PHYSICAL EXAMINATION: GENERAL: This thinly built, middle-aged, male is alert and pale, in no acute distress. There is marked clubbing. No cyanosis. IMPRESSION: 1. Extensive right upper lobe pneumonia, etiology undetermined. 2. Chronic obstructive pulmonary disease with emphysema. 3. Rule out malignancy. 4. Nicotine dependency. Plan : 1. Continue antibiotics per ID 2. O2 2L PRN 3. IS q3h. 4. Duonebs qid . 5. Mucomyst 20 % solution , 2 CC qid with Timoteo Moyer MD August 20, 2017 18:26
[2017-08-20] MEDS: RESP: ALBUTEROL 2.5 MG/IPRATROPIUM 0.5 MG NEB (PRN) NEB (21:29)
[2017-08-20] MEDS: RESP: ACETYLCYSTEINE 20% 4 ML NEB NEB SCH (21:29)
[2017-08-21] VITALS (8 sets, daily range): BP systolic 117–144; BP diastolic 61–69; PULSE 77–86; RESP 18–20; TEMP 97.7–98.8; O2SAT 95–98
[2017-08-21] MEDS: VANCOMYCIN INJ 1,750 MG in SODIUM CHLORID 0.9% 500 ML INJ 500 ML IV SCH (01:00)
[2017-08-21] MEDS: SODIUM CHLOR 0.9% 1000 ML INJ 1,000 ML IV SCH ×3 (01:00→15:29)
[2017-08-21] MEDS: RESP: ACETYLCYSTEINE 20% 4 ML NEB NEB SCH ×4 (03:26→21:31)
[2017-08-21] MEDS: RESP: ALBUTEROL 2.5 MG/IPRATROPIUM 0.5 MG NEB (PRN) NEB ×4 (03:26→21:31)
[2017-08-21] MEDS: PIPERACIL-TAZO 4.5 GM PREMIX 100 ML IV SCH (06:13)
--- NOTE | 2017-08-21 08:46 | HHI.PR ---
Subjective Remarks The patient is in bed he appears in not acute distress. IV antibiotics are stopped. Trial of p.o. antibiotics per infectious disease. Will monitor patient overnight. He has some loose bowels. No fever or chills no nausea or vomiting. No chest pain with deep breath. He is not coughing much. Objective Vitals Vital Signs Date Time Temp Pulse Resp B/P (MAP) Pulse Ox O2 Delivery O2 Flow Rate FiO2 08/21/17 08:00 98.3 77 20 137/69 (91) 96 08/21/17 04:51 98.4 85 20 136/68 (90) 96 08/21/17 00:19 98.8 79 18 140/66 (90) 95 08/20/17 20:38 98.3 79 20 151/69 (96) 97 08/20/17 16:00 98.1 74 16 131/62 (85) 94 08/20/17 12:00 97.7 80 16 125/67 (86) 96 I/O 08/20/17 08/20/17 08/20/17 08/21/17 08/21/17 08/21/17 07:00 15:00 23:00 07:00 15:00 23:00 Intake Total 517.5 ml 100 ml 1900 ml 1697.5 ml Output Total 1000 ml 1000 ml Balance 517.5 ml 100 ml 900 ml 697.5 ml Intake Oral 900 ml 680 ml IV Total 517.5 ml 100 ml 1000 ml 1017.5 ml Output Urine Total 1000 ml 1000 ml # Voids 3 # Bowel Movements 2 0 Result Diagram: 08/20/17 0400 Imaging Last Impressions Chest X-Ray 08/20/17 0600 Signed Impressions: CONCLUSION: Possible mild improvement in right upper lung consolidation. Objective Remarks GENERAL: 62 yo male, appears in nad. CARDIOVASCULAR: Regular rate and rhythm. RESPIRATORY: No accessory muscle use. Clear to auscultation. Breath sounds equal bilaterally. GASTROINTESTINAL: Abdomen soft, non-tender, nondistended. Hepatic and splenic margins not palpable. MUSCULOSKELETAL: Extremities without clubbing, cyanosis, or edema. No obvious deformities. NEUROLOGICAL: Awake and alert. No obvious cranial nerve deficits. Motor grossly within normal limits. Five out of 5 muscle strength in the arms and legs. Normal speech. PSYCHIATRIC: Appropriate mood and affect; insight and judgment normal. A/P Problem List: (1) Sepsis ICD Code: A41.9 - Sepsis, unspecified organism (2) PNA (pneumonia) ICD Code: J18.9 - Pneumonia, unspecified organism (3) Tobacco abuse ICD Code: Z72.0 - Tobacco use Assessment and Plan PNA: Recent admit 08/13/17 for Sepsis/PNA, TB PCR negative, Blood Cultures negative, AFB negative. DuoNeb prn, Symbicort, Mucinex. DC IV antibiotics vanc and zosyn per ID. Started on Augmentin by mouth and ciprofloxacin by mouth. Dr. Hayden following, status post bronchoscopy. Cytology/BAL results pending. Repeat chest x-ray 08/21/17 reviewed shows improvement, findings discussed with infectious disease doctor and with Dr. Mccarty pulmonology and with the patient. Loose stool. Start Lactinex DVT Prophylaxis: SCD/Teds Discharge Planning Await cytology/BAL results. Clearance for discharge from infectious disease and pulmonology Discussed with the patient, nurse, Dr. Mccarty pulmonology Cleared by infectious disease for discharge. And pulmonology for discharge tomorrow morning. Prema Moreau MD Aug 21, 2017 08:46
[2017-08-21] MEDS: SODIUM CHLORIDE 0.9% FLUSH 10 ML FLUSH IV FLUSH SCH ×2 (09:00→21:54)
[2017-08-21] MEDS: DOCUSATE SODIUM 50 MG/SENNA 8.6 MG TAB PO SCH ×2 (09:00→21:00)
--- NOTE | 2017-08-21 09:31 | HHI.IDPN ---
Subjective Subjective Remarks Patient is a 62-year-old male, with no significant past medical history, presented to the hospital complaining of several week history of generalized weakness. He had significant generalized malaise, and body aches. He is soon then developed cough associated with some chest tightness which is usually when he coughs. He has been bringing up some yellowish phlegm, and has had some blood tinged sputum. He has had some sweats, but no documented fever, and no rigors. He denies any history of syncope, nausea or vomiting. He has had some loose stool, about 1-2 x a day, and took Peptobismol. Has not had any abdominal pain. He has experienced some pain in his upper back since he has been sick. He denies any urinary complaints. He lost 10 lbs since he has been sick due to poor oral intake. Patient lives in his home, and has been taking care of an older brother. He denies any prior exposure to tuberculosis. Patient has lived mostly on the [facility]. He has worked doing some sales. He was initially admitted July 24, and his chest x-ray showed extensive right upper lobe pneumonia. He had some low-grade temps. Mary antigen was negative. Blood cultures were negative. His sputum culture showed normal respiratory cristy. His WBC was in the 20,000s. During his hospitalization patient apparently went out for a walk, and claimed that he fell asleep. When he went back to his room he was told that he was discharged so he presented again and got readmitted August 15. He had sputum for AFB negative, TB PCR negative , and HIV Ab negative during his last admission. Patient stated that he has been working in his house especially the ceiling, and has been exposed to a lot of mold during his work. He started working on this back in May, and the work has been completed. Infectious disease consultation has been requested to assist with evaluation of this patient with extensive pneumonia. Notes reviewed Temps ok Feeling better Cough markedly improved, about 80% better Not short of breath No new complaint Bronch C/S is negative so far No AFB or fungal seen Lung biopsy no malignancy all inflammation Cytology pending Repeat chest x-ray showed some improvement in the right upper lung infiltrate Antibiotics Zosyn Vancomycin Current Medications Medications (Trade) Dose Ordered Sig/Otoniel Route Start Time Stop Time Status Last Admin Pharmacy Profile Note 0 ml @ 0 mls/hr UNSCH OTHER 08/15/17 23:30 (Duoneb Neb) 1 ampule Q4HR NEB PRN NEB 08/15/17 23:30 08/21/17 08:52 Sodium Chloride 1,000 ml @ 100 mls/hr Q10H IV 08/15/17 23:28 08/21/17 01:00 (NS Flush) 2 ml UNSCH PRN IV FLUSH 08/15/17 23:30 (NS Flush) 2 ml BID IV FLUSH 08/16/17 09:00 08/18/17 09:00 (Reglan Inj) 5 mg Q6H PRN IV PUSH 08/15/17 23:30 (Tylenol) 650 mg Q6H PRN PO 08/15/17 23:30 (Dunbar 5-325 Mg) 1 tab Q4H PRN PO 08/15/17 23:30 (Dunbar 10-325 Mg) 1 tab Q4H PRN PO 08/15/17 23:30 (Meri-Colace) 1 tab BID PO 08/16/17 09:00 (Milk Of Magnesia Liq) 30 ml Q12H PRN PO 08/15/17 23:30 (Senokot) 17.2 mg Q12H PRN PO 08/15/17 23:30 (Dulcolax Supp) 10 mg DAILY PRN RECTAL 08/15/17 23:30 (Lactulose Liq) 30 ml DAILY PRN PO 08/15/17 23:30 (Symbicort 160-4.5 Mcg Inh) 2 puff Q12HR INH 08/16/17 09:00 08/20/17 21:00 Piperacillin Sod/ Tazobactam Sod 100 ml @ 200 mls/hr Q6H IV 08/16/17 11:00 08/21/17 06:13 (Robitussin Dm 200-20 Mg/10 ml Liq) 10 ml Q6H PRN PO 08/16/17 13:15 08/20/17 05:31 Sodium Chloride 1,000 ml @ 0 mls/hr Q0M IV 08/16/17 16:00 Vancomycin HCl 1750 mg/Sodium Chloride 517.5 ml @ 250 mls/hr Q12H IV 08/18/17 01:00 08/21/17 01:00 ([facility] Ordered Lab Info) SPECIFIC LAB TO BE DRAWN:VANCO TROUGH DATE... ONCE ONCE .XX 08/21/17 12:45 08/21/17 12:46 (Mucomyst 20% Neb) 2 ml Q6HR NEB NEB 08/20/17 22:00 08/24/17 21:59 08/21/17 08:52 Lines PIV no evidence of infection Past Medical History None Allergies: Coded Allergies: No Known Allergies (Verified Allergy, Unknown, 08/15/17) Objective . Vital Signs Date Time Temp Pulse Resp B/P (MAP) Pulse Ox O2 Delivery O2 Flow Rate FiO2 08/21/17 08:52 96 21 08/21/17 08:00 98.3 77 20 137/69 (91) 96 08/21/17 04:51 98.4 85 20 136/68 (90) 96 08/21/17 00:19 98.8 79 18 140/66 (90) 95 08/20/17 20:38 98.3 79 20 151/69 (96) 97 08/20/17 16:00 98.1 74 16 131/62 (85) 94 08/20/17 12:00 97.7 80 16 125/67 (86) 96 . Laboratory Tests Test 08/20/17 04:00 Creatinine 0.92 MG/DL Estimat Glomerular Filtration Rate 101 ML/MIN Microbiology Date/Time Source Procedure Growth Status 08/18/17 11:30 Bronchial Washings Right Upper Lobe Fungal Smear Pending Received 08/18/17 11:30 Bronchial Washings Right Upper Lobe Fungal Culture Pending Received 08/18/17 11:30 Bronchial Brushings Right Upper Lobe Fungal Smear - Final NO FUNGAL ELEMENTS SEEN. Resulted 08/18/17 11:30 Bronchial Brushings Right Upper Lobe Fungal Culture Pending Resulted 08/18/17 11:30 Bronchial Washings Right Upper Lobe Acid Fast Stain - Final NO ACID FAST BACILLI SEEN Resulted 08/18/17 11:30 Bronchial Washings Right Upper Lobe Mycobacterial Culture Pending Resulted 08/18/17 11:30 Bronchial Brushings Right Upper Lobe Acid Fast Stain - Final NO ACID FAST BACILLI SEEN Resulted 08/18/17 11:30 Bronchial Brushings Right Upper Lobe Mycobacterial Culture Pending Resulted 08/18/17 11:30 Bronchial Brushings Right Upper Lobe Bronchial Aspirate Culture - Final NO GROWTH IN 48 HOURS. Complete 08/18/17 11:30 Bronchial Washings Right Upper Lobe Gram Stain - Final Complete 08/18/17 11:30 Bronchial Washings Right Upper Lobe Bronchial Culture - Final NO GROWTH IN 48 HOURS. Complete Imaging Chest X-Ray 08/18/17 0000 Signed Impressions: CONCLUSION: No pneumothorax noted post bronchoscopy. Dense consolidation in the upper right lung remains with questionable loculated pleural fluid. Chest CT 08/13/17 0000 Signed Impressions: CONCLUSION: 1. Dense consolidation in the right upper lobe most consistent with severe pne umonia. 2. Mild pretracheal adenopathy. Chest X-Ray 08/12/172057 Signed Impressions: CONCLUSION: 1. Large airspace consolidation in the right upper lobe. Consider atypical inf ection/TB. Recommend follow-up to resolution. Physical Exam GENERAL: Patient is a thin, well-developed male, awake and alert, not in respiratory distress. SKIN: Cool and dry. No generalized rash, no ecchymoses and no evidence of embolic lesions. HEAD: Atraumatic. Normocephalic. No temporal wasting, or tenderness. EYES: [place] conjunctiva. No petechia or hemorrhage. Pupils equal, round and reactive to light. Extraocular movements full and intact. No scleral icterus. No injection or drainage. EARS, NOSE AND THROAT: Nose without bleeding or purulent nasal discharge. No sinus tenderness. Mucous membranes pink and moist. No oral lesions noted. No exudate. No oral thrush. NECK: Trachea midline. Supple and not tender, no meningeal signs CARDIOVASCULAR: Regular rate and rhythm. No murmurs, rubs or gallops heard RESPIRATORY: Decreased breath sounds R side. Has decreased vocal fremitus R side ABDOMEN: Soft, flat, non-tender, nondistended. Bowel sounds present and normoactive. No guarding. No rebound. No organomegaly. EXTREMITIES: No clubbing, cyanosis, or edema. No joint effusion, has good ROM. No calf tenderness. Well perfused and warm. NEUROLOGICAL: Non-focal. PSYCHIATRIC: Normal affect, calm and cooperative. LINE: No evidence of infection Assessment & Plan Remarks IMPRESSION Extensive RUL PNA - TB evaluation negative - bacterial, ?fungal or other atypical pathogen - No malignancy on biopsy - CXR with some improvement Possible sepsis due to PNA, better Leukocytosis, decreasing RECOMMENDATION Stop IV antibiotic Cipro plus Augmentin 3 more weeks Will ask case management to assist with obtaining Augmentin Cipro can be filled at [facility] for free Patient can be discharged from ID standpoint Pulmonary will get all the bronchoscopy results and can do his follow-up Explained plan to the patient Answered all his questions Faby Mccullough MD Aug 21, 2017 09:31
[2017-08-21] MEDS: BUDESONIDE-FORMOTEROL 160/4.5 MCG INHALER INH SCH ×3 (09:47→21:55)
[2017-08-21] MEDS: AMOXICILLIN/CLAVULANATE K 500 MG TAB PO SCH ×2 (10:44→17:56)
[2017-08-21] MEDS: CIPROFLOXACIN 750 MG TAB PO SCH ×2 (10:44→21:53)
[2017-08-21] MEDS ORDERED: PHARMACY ORDERED LAB ONE (12:45)
[2017-08-21] MEDS ORDERED: LACTOBACILLUS ACIDOPHILUS TAB PO ONE (14:30)
[2017-08-21] MEDS ORDERED: AMOX500T2 PO (17:55)
[2017-08-21] MEDS ORDERED: CIPR750T2 PO (17:55)
[2017-08-21] MEDS ORDERED: LACTCHW3 CHEW (17:55)
--- NOTE | 2017-08-21 17:55 | HHI.DS ---
Discharge Summary Admission Date August 15, 2017 at 23:39 Discharge Date: Aug 22, 2017 Admitting Diagnosis (1) Sepsis ICD Code: A41.9 - Sepsis, unspecified organism (2) PNA (pneumonia) ICD Code: J18.9 - Pneumonia, unspecified organism (3) Tobacco abuse ICD Code: Z72.0 - Tobacco use Procedures bronchoscopy Brief History - From Admission This is a 62-year-old male with no significant PMH who presents the ER for readmission secondary to ongoing cough and fever. Pt was recently admitted on for Sepsis/PNA, CT Chest w/ RUL PNA, on IV Rocephin/Zithro, negative TB PCR and AFB. States he "was cooped up inside and it was a beautiful day", states he was told by RN he could walk around and went outside to the courtyard where he fell asleep. States when he went back upstairs to his room he was told he had been discharged. States he's had ongoing cough and fever, and was urged by family to come back for re-admission. On arrival, BP 101/57, HR 95, O2 sat 90% on RA, Temp 100.9. WBC 27.2, previously 23.8. Chemistry essentially unremarkable. CXR with extensive right lung airspace disease. CBC/BMP: 08/20/17 0400 Significant Findings Laboratory Tests Test 08/19/17 12:31 08/20/17 04:00 Vancomycin Level Trough 16.3 MCG/ML (5.0-10.0) Imaging Last Impressions Chest X-Ray 08/20/17 0600 Signed Impressions: CONCLUSION: Possible mild improvement in right upper lung consolidation. PE at Discharge GENERAL: 62 yo male, appears in nad. CARDIOVASCULAR: Regular rate and rhythm. RESPIRATORY: No accessory muscle use. Clear to auscultation. Breath sounds equal bilaterally. GASTROINTESTINAL: Abdomen soft, non-tender, nondistended. Hepatic and splenic margins not palpable. MUSCULOSKELETAL: Extremities without clubbing, cyanosis, or edema. No obvious deformities. NEUROLOGICAL: Awake and alert. No obvious cranial nerve deficits. Motor grossly within normal limits. Five out of 5 muscle strength in the arms and legs. Normal speech. PSYCHIATRIC: Appropriate mood and affect; insight and judgment normal. Pt update on day of discharge Feels better. No n/v/d/c. No fever or chills. Tolerates PO antibiotics. Hospital Course PNA: Recent admit 08/13/17 for Sepsis/PNA, TB PCR negative, Blood Cultures negative, AFB negative. DuoNeb prn, Symbicort, Mucinex. DC IV antibiotics vanc and zosyn per ID. Started on Augmentin by mouth and ciprofloxacin by mouth. Dr. Hayden following, status post bronchoscopy. Cytology/BAL results pending. Repeat chest x-ray 08/21/17 reviewed shows improvement, findings discussed with infectious disease doctor and with Dr. Mccarty pulmonology and with the patient. Loose stool. Started Lactinex DVT Prophylaxis: SCD/Teds Discharge Planning Await cytology/BAL results. Clearance for discharge from infectious disease and pulmonology Discussed with the patient, nurse, Dr. Mccarty pulmonology Cleared by infectious disease and pulm for discharge. Patient is DC home in stable condition to follow up as OP with PCP and consultants as OP. Patient to have pulmonary function test as outpatient. Will follow up with Dr Laurie salgado as OP. Pt Condition on Discharge: Stable Discharge Disposition: Discharge Home Discharge Time: > 30 minutes Discharge Instructions DIET: Follow Instructions for: As Tolerated, No Restrictions Activities you can perform: Regular-No Restrictions Follow up Referrals: PCP Follow-up - 2-3 Days Pulmonology - 1 Week with Timoteo Son MD New Orders: PFT PRE/POST BRONCH New Medications: Albuterol 18 GM Inh (Ventolin Hfa 18 GM Inh) 90 Mcg/Act Aer 2 PUFF INH Q4H PRN for SHORTNESS OF BREATH, #1 INHALER 0 Refills Amoxicillin-Clavulanate (Amoxicillin-Clavulanate) 500-125 mg Tab 500 MG PO TID for Infection for 28 Days, #84 TAB 0 Refills Budesonide-Formoterol Inh (Symbicort Inh) 160-4.5 Mcg/Act Aero 2 PUFF INH Q12HR, #1 INHALER 0 Refills Ipratropium HFA 12.9 GM Inh (Atrovent HFA 12.9 GM Inh) 17 Mcg/Actuation Aer 2 PUFF INH Q6HR PRN for SHORTNESS OF BREATH, #1 INHALER 0 Refills Ipratropium-Albuterol Neb (Duoneb) 0.5-2.5 Mg/3 Ml Neb 1 NEBULE INH Q4HR NEB for Breathing Treatment, #180 NEBULE 0 Refills Lactobacillus Acidophilus (Lactinex) 1 Chew 1 TAB CHEW TID for Nutritional Supplement, #180 TAB 0 Refills Nebulizer (Nebulizer) 1 Mis Mis EA .XX DIRECTED for Breathing Treatment, #1 0 Refills Nicotine Patch (Nicoderm CQ Patch) 14 Mg/24 Hr Patch 14 MG T-DERMAL DAILY for Smoking Cessation, #30 PATCH 0 Refills Spacer/Device For Mdi (Inspirease Drug Delivery) 1 Ea Mis EA .XX DIRECTED, #1 0 Refills Ciprofloxacin (Ciprofloxacin) 750 Mg Tab 750 MG PO Q12H for infection for 28 Days, #56 TAB Prema Moreau MD Aug 21, 2017 17:55
--- NOTE | 2017-08-21 18:30 | HHI.PR ---
Subjective Remarks He has improved.. Sputum is clear. No fever. Chest X ray is better.On PO Meds now. Bronch biopsy shows inflammation. AFB smear negative . Cultures pending Objective Vital Signs Date Time Temp Pulse Resp B/P (MAP) Pulse Ox O2 Delivery O2 Flow Rate FiO2 08/21/17 16:00 98.3 78 20 144/68 (93) 98 08/21/17 12:00 98.6 86 20 117/61 (79) 97 08/21/17 08:52 96 21 08/21/17 08:00 98.3 77 20 137/69 (91) 96 08/21/17 07:59 78 08/21/17 04:51 98.4 85 20 136/68 (90) 96 08/21/17 00:19 98.8 79 18 140/66 (90) 95 08/20/17 20:38 98.3 79 20 151/69 (96) 97 I/O 08/20/17 08/20/17 08/20/17 08/21/17 08/21/17 08/21/17 07:00 15:00 23:00 07:00 15:00 23:00 Intake Total 517.5 ml 100 ml 1900 ml 1697.5 ml Output Total 1000 ml 1000 ml 270 ml Balance 517.5 ml 100 ml 900 ml 697.5 ml -270 ml Intake Oral 900 ml 680 ml IV Total 517.5 ml 100 ml 1000 ml 1017.5 ml Output Urine Total 1000 ml 1000 ml 270 ml # Voids 3 # Bowel Movements 2 0 Result Diagram: 08/20/17 0400 Objective Remarks PHYSICAL EXAMINATION: GENERAL: This thinly built, middle-aged, male is alert and in no acute distress. There is no clubbing. No cyanosis. HEENT: Head is normocephalic. Pupils were reactive. Tongue is moist. Throat is clear. Ears, no inflammation. NECK: No bruits, no lymphadenopathy or thyromegaly. CHEST: Equal movements with percussion, note resonant throughout. Breath sounds diminished at the periphery. HEART: The heart sounds were regular, S1, S2, with no murmur. No S3 gallop. ABDOMEN: Soft, scaphoid, without masses. No organomegaly, tenderness. Bowel sounds are active. EXTREMITIES: Decreased pulses. Reflexes are 1+, with no gross motor deficits. . SKIN: No lesions noted. Assessment and Plan Assessment and Plan PHYSICAL EXAMINATION: GENERAL: This thinly built, middle-aged, male is alert and pale, in no acute distress. There is marked clubbing. No cyanosis. IMPRESSION: 1. Extensive right upper lobe pneumonia, etiology undetermined. 2. Chronic obstructive pulmonary disease with emphysema. 3. Rule out malignancy. 4. Nicotine dependency. Plan : 1. Continue antibiotics PO per ID 2. D/C O2 3. IS q3h. 4. D/C Duonebs 5. Add Spiriva , 2 puffs daily. and Symbicort 160/4.5 mcg , 2puffs bid 6. OK to go home and will see as OP in 3 weeks Timoteo Son MD Aug 21, 2017 18:30
[2017-08-21] MEDS: LACTOBACILLUS ACIDOPHILUS TAB PO SCH (21:53)
[2017-08-22 00:46] VITALS: BP 143/80; PULSE 74; RESP 16; TEMP 98.3; O2SAT 96
[2017-08-22] MEDS: RESP: ACETYLCYSTEINE 20% 4 ML NEB NEB SCH ×3 (04:00→15:34)
[2017-08-22] MEDS: RESP: ALBUTEROL 2.5 MG/IPRATROPIUM 0.5 MG NEB (PRN) NEB ×2 (04:24→15:33)
[2017-08-22 04:26] VITALS: O2SAT 96
[2017-08-22 04:57] VITALS: BP 127/64; PULSE 78; RESP 17; TEMP 98.4; O2SAT 95
[2017-08-22] MEDS: AMOXICILLIN/CLAVULANATE K 500 MG TAB PO SCH ×2 (04:57→10:35)
[2017-08-22 08:00] VITALS: BP 131/67; PULSE 76; RESP 18; TEMP 98.2; O2SAT 97
[2017-08-22] MEDS: SODIUM CHLORIDE 0.9% FLUSH 10 ML FLUSH IV FLUSH SCH (09:00)
[2017-08-22] MEDS: DOCUSATE SODIUM 50 MG/SENNA 8.6 MG TAB PO SCH ×2 (09:00→09:47)
[2017-08-22] MEDS: BUDESONIDE-FORMOTEROL 160/4.5 MCG INHALER INH SCH ×2 (09:00)
[2017-08-22] MEDS: LACTOBACILLUS ACIDOPHILUS TAB PO SCH (09:46)
[2017-08-22 10:22] VITALS: O2SAT 95
[2017-08-22] MEDS: CIPROFLOXACIN 750 MG TAB PO SCH (10:35)
[2017-08-22] MEDS ORDERED: NICO14DI4 T-DERMAL (11:14)
[2017-08-22] MEDS ORDERED: NEBULIZER1 MI1 (11:14)
[2017-08-22] MEDS ORDERED: SYMB160A INH (11:14)
[2017-08-22] MEDS ORDERED: IPRA17I INH (11:14)
[2017-08-22] MEDS ORDERED: VENTAER INH (11:14)
[2017-08-22] MEDS ORDERED: INSPIREASE DRUG1 EA (11:14)
[2017-08-22] MEDS ORDERED: IPRASOL INH (11:14)
[2017-08-22 12:00] VITALS: BP 127/61; PULSE 80; RESP 18; TEMP 98.1; O2SAT 97
[2017-08-22 19:53] LABS: ASPERGILLUS FLAVUS AB NEGATIVE (NEGATIVE); ASPERGILLUS FUMIGATUS AB NEGATIVE (NEGATIVE); ASPERGILLUS NIGER AB NEGATIVE (NEGATIVE)
--- NOTE | 2017-08-24 08:59 | RSPPFT ---
DATE OF PROCEDURE: 08/18/17 COMMENTS: Spirometry demonstrates an FEV1 of 1.5 at 39% of predicted FVC of 2.3 at 47%, FEF 25-75 is 16%. Post-bronchodilator study demonstrated significant improvements indicating some reversibility. Lung volumes were not conducted. Flow volume loops suggest a restrictive defect. IMPRESSION: 1. Moderately severe obstructive disease. 2. Additional moderate restrictive disease. 3. Significant response to use of bronchodilator indicating some reversibility.
== END 2017-08-22 17:45 | disposition home or self-care (01) | DRG 871 ==
LOC: NEPC 20:20 → NEDA 23:39 → N07A 08-16 00:45
PROVIDERS: ADMIT Hospitalist; ATTEND Hospitalist
PROC: 0BD48ZX Extraction of Right Upper Lobe Bronchus, Via Natural or Artificial Opening Endoscopic, Diagnostic (ICD-10-PCS; principal; 2017-08-18)
PROC: 0B948ZZ Drainage of Right Upper Lobe Bronchus, Via Natural or Artificial Opening Endoscopic (ICD-10-PCS; 2017-08-18)
PROC: 0BD58ZX Extraction of Right Middle Lobe Bronchus, Via Natural or Artificial Opening Endoscopic, Diagnostic (ICD-10-PCS; 2017-08-18)
PROC: 0B968ZZ Drainage of Right Lower Lobe Bronchus, Via Natural or Artificial Opening Endoscopic (ICD-10-PCS; 2017-08-18)
PROC: 0BD68ZX Extraction of Right Lower Lobe Bronchus, Via Natural or Artificial Opening Endoscopic, Diagnostic (ICD-10-PCS; 2017-08-18)
DX: A41.9 Sepsis, unspecified organism (principal); J18.9 Pneumonia, unspecified organism; R04.2 Hemoptysis; J44.9 Chronic obstructive pulmonary disease, unspecified; M54.6 Pain in thoracic spine; F17.210 Nicotine dependence, cigarettes, uncomplicated
CPT/HCPCS: 71045; 71046; 80053; 80202; 80307; 81001; 82565; 83605; 85007; 85025; 85027; 85610; 85730; 86606; 87015; 87070; 87071; 87102; 87116; 87205; 87206; 88112; 88305; 93005; 94060; 94640; 94664; J0692; J2543; J3370; J7030; J7040; J7050; J7608; J7611

== ENCOUNTER 2017-09-01 16:39 | Emergency (ER) | payer SELFPAY ==
[~2017-09-01] VITALS: Ht 185.4 cm; Wt 72.0 kg
[~2017-09-01 16:39] MED LIST changes: +AMOX500T2 PO; +CIPR750T2 PO; -CLIN1CAP5 PO; +INSPIREASE DRUG1 EA; +IPRA17I INH; +IPRASOL INH; +LACTCHW3 CHEW; +NEBULIZER1 MI1; +NICO14DI4 T-DERMAL; +SYMB160A INH; +VENTAER INH; -Z.0.NO CURRENT MEDS
[2017-09-01 16:59] VITALS: BP 125/61; PULSE 78; RESP 16; TEMP 98.3; O2SAT 98
--- NOTE | 2017-09-01 17:59 | PD ---
HPI Chief Complaint: Medical Clearance Time Seen by Provider: 17:46 Travel History International Travel<30 days: No Contact w/Intl Traveler<30days: No Traveled to known affect area: No History of Present Illness HPI 62-year-old male presents emergency department for evaluation of left lower extremity pain. Patient recent hospitalization for nearly 2 weeks for a pneumonia. He states the pain initially started just below the knee on the lateral aspect of his leg and then progressed above his knee into the mid thigh. He is concerned because he thinks he might have developed a blood clot. He has never had blood clots before but his mother had one which she ultimately passed to her lungs and from. No shortness of breath in this patient, he has completed his antibiotics and states is feeling much better no continued cough. No fevers no nausea no vomiting. States his pain is 3 out of 10 in severity, left lower extremity, radiation as above, context and associated signs symptoms as above. PFSH Past Medical History Anxiety: Yes Cancer: No Cardiovascular Problems: No Diminished Hearing: No Endocrine: No Genitourinary: Yes Immune Disorder: No Musculoskeletal: No Neurologic: No Psychiatric: No Reproductive: No Respiratory: No Renal Failure: Yes Past Surgical History Other Surgery: Yes Social History Alcohol Use: No (OCC) Tobacco Use: Yes (PACK A DAY) Substance Use: Yes (CRACK (PER RELATIVE, PT DENIES)) Allergies-Medications (Allergen,Severity, Reaction): Coded Allergies: No Known Allergies (Verified Allergy, Unknown, 09/01/17) Reported Meds & Prescriptions Reported Meds & Active Scripts Active Eliquis (Apixaban) 5 Mg Tab 5 Mg PO BID Symbicort Inh (Budesonide/Formoterol Fumarate) 160-4.5 Mcg/Act Aero 2 Puff INH Q12HR Inspirease Drug Delivery (Spacer/Device For Mdi) 1 Ea Mis Ea .XX DIRECTED Nebulizer 1 Mis Mis Ea .XX DIRECTED Duoneb (Ipratropium-Albuterol Neb) 0.5-2.5 Mg/3 Ml Neb 1 Nebule INH Q4HR NEB Atrovent HFA 12.9 GM Inh (Ipratropium [place]) 17 Mcg/Actuation Aer 2 Puff INH Q6HR PRN Ventolin Hfa 18 GM Inh (Albuterol Sulfate) 90 Mcg/Act Aer 2 Puff INH Q4H PRN Amoxicillin-Clavulanate 500-125 mg Tab 500 Mg PO TID 28 Days Ciprofloxacin (Ciprofloxacin HCl) 750 Mg Tab 750 Mg PO Q12H 28 Days Review of Systems Except as stated in HPI: all other systems reviewed are Neg Physical Exam Narrative GENERAL: Well-developed well-nourished thin male in no obvious distress SKIN: Focused skin assessment warm/dry. HEAD: Atraumatic. Normocephalic. EYES: Pupils equal and round. No scleral icterus. No injection or drainage. ENT: No nasal bleeding or discharge. Mucous membranes pink and moist. NECK: Trachea midline. No JVD. CARDIOVASCULAR: Regular rate and rhythm. No murmur appreciated. RESPIRATORY: No accessory muscle use. Clear to auscultation. Breath sounds equal bilaterally. GASTROINTESTINAL: Abdomen soft, non-tender, nondistended. Hepatic and splenic margins not palpable. MUSCULOSKELETAL: No obvious deformities. No clubbing. No cyanosis. No edema. Do not appreciate any edema of the lower extremity, no reproducible pain, Homans sign negative, no cordlike structure palpable peer NEUROLOGICAL: Awake and alert. No obvious cranial nerve deficits. Motor grossly within normal limits. Normal speech. PSYCHIATRIC: Appropriate mood and affect; insight and judgment normal. Data Data Last Documented VS Vital Signs Date Time Temp Pulse Resp B/P (MAP) Pulse Ox O2 Delivery O2 Flow Rate FiO2 09/01/17 17:48 18 09/01/17 16:59 98.3 78 125/61 (82) 98 Orders Orders Us Leg Venous Doppler (09/01/17 ) Complete Blood Count With Diff (09/01/17 18:54) Comprehensive Metabolic Panel (09/01/17 18:54) Prothrombin Time / Inr (Pt) (09/01/17 18:54) Act Partial Throm Time (Ptt) (09/01/17 18:54) Ecg Monitoring (09/01/17 18:54) Iv Access Insert/Monitor (09/01/17 18:54) Oximetry (09/01/17 18:54) Oxygen Administration (09/01/17 18:54) Sodium Chloride 0.9% Flush (Ns Flush) (09/01/17 19:00) Ed Discharge Order (09/01/17 21:45) Apixaban (Eliquis) (09/01/17 22:00) Labs Laboratory Tests Test 09/01/17 19:50 White Blood Count 5.0 TH/MM3 Red Blood Count 4.00 MIL/MM3 Hemoglobin 11.5 GM/DL Hematocrit 34.4 % Mean Corpuscular Volume 86.1 FL Mean Corpuscular Hemoglobin 28.8 PG Mean Corpuscular Hemoglobin Concent 33.4 % Red Cell Distribution Width 14.2 % Platelet Count 305 TH/MM3 Mean Platelet Volume 7.9 FL Neutrophils (%) (Auto) 36.4 % Lymphocytes (%) (Auto) 50.7 % Monocytes (%) (Auto) 9.6 % Eosinophils (%) (Auto) 2.5 % Basophils (%) (Auto) 0.8 % Neutrophils # (Auto) 1.8 TH/MM3 Lymphocytes # (Auto) 2.5 TH/MM3 Monocytes # (Auto) 0.5 TH/MM3 Eosinophils # (Auto) 0.1 TH/MM3 Basophils # (Auto) 0.0 TH/MM3 CBC Comment DIFF FINAL Differential Comment Prothrombin Time 11.4 SEC Prothromb Time International Ratio 1.1 RATIO Activated Partial Thromboplast Time 27.3 SEC Blood Urea Nitrogen 16 MG/DL Creatinine 1.02 MG/DL Random Glucose 85 MG/DL Total Protein 8.0 GM/DL Albumin 2.6 GM/DL Calcium Level 8.5 MG/DL Alkaline Phosphatase 187 U/L Aspartate Amino Transf (AST/SGOT) 30 U/L Alanine Aminotransferase (ALT/SGPT) 29 U/L Total Bilirubin 0.4 MG/DL Sodium Level 141 MEQ/L Potassium Level 4.4 MEQ/L Chloride Level 108 MEQ/L Carbon Dioxide Level 28.1 MEQ/L Anion Gap 5 MEQ/L Estimat Glomerular Filtration Rate 90 ML/MIN [facility] Medical Decision Making Medical Screen Exam Complete: Yes Emergency Medical Condition: Yes Differential Diagnosis DVT, superficial venous thrombosis, atrophy, musculoskeletal pain. Narrative Course Patient room to the emergency department, certainly with his prolonged hospitalization is at risk for DVT and I recommended him for an ultrasound and he is agreeable to this. Ultrasound was positive for a DVT below the knee as well as a superficial venous thrombosis which did extend above the knee. Last 24 hours Impressions Lower Extremity Ultrasound 09/01/17 0000 Signed Impressions: CONCLUSION: 1. Greater saphenous vein thrombosis 2. Posterior tibial vein thrombosis below the knee. The deep venous system pat ent above the knee. These results were discussed with [employer] consultant Dr. Duque who did recommend anticoagulation with either Lovenox or Eliquis. Patient is self-pay and is on the [employer] program. He was discussed with case management and ultimately a month supply has been issued to the patient. He was given a first dose here. We discussed the risk benefits complications and alternative of the medicine prior to its administration including bleeding which could be life- threatening but also did discuss the rationale and the justification for anticoagulating him to prevent pulmonary embolism. He ultimately verbalized understanding and agreement to the course of therapy and will follow up with a primary care physician his daily health clinic or Dr. Mi Diagnosis Primary Impression: Acute superficial venous thrombosis of left lower extremity Referrals: Aakash Mi MD Med/Other Pt SpecificInfo: Prescription(s) given Scripts Apixaban (Eliquis) 5 Mg Tab 5 MG PO BID for Blood Clot Prevention, #60 TAB 0 Refills Prov: Justin Gonsales MD 09/01/17 Disposition: 01 DISCHARGE HOME Condition: Stable Justin Gonsales MD Sep 01, 2017 17:59
[2017-09-01] MEDS ORDERED: SODIUM CHLORIDE 0.9% FLUSH 10 ML FLUSH IVF PRN (19:00)
--- NOTE | 2017-09-01 19:37 | RADRPT ---
EXAM DATE: 09/01/2017 7:02 PM EDT AGE/SEX: 62 years / Male INDICATIONS: Left leg pain. CLINICAL DATA: This is the patient's initial encounter. Patient reports that signs and symptoms have been present for 2 weeks and indicates a pain score of 3/10. MEDICAL/SURGICAL HISTORY: Renal insufficiency. . Broken wrist surgery. COMPARISON: No prior exams available for comparison. TECHNIQUE: Venous ultrasound of both lower extremities was performed from the inguinal ligament to t he proximal calf. Real-time, color Doppler and spectral tracing, compression and augmentation techni ques were used. FINDINGS: Occlusive thrombus is present in the greater saphenous vein from calf to mid thigh. There is minimal occlusive thrombus in the posterior tibial vein that does not extend above the knee. The venous system above the knee is patent. CONCLUSION: 1. Greater saphenous vein thrombosis 2. Posterior tibial vein thrombosis below the knee. The deep venous system patent above the knee. Electronically signed by: Yefri Zambrano MD 09/01/2017 7:36 PM EDT
[2017-09-01 20:24] LABS: AUTOMATED NEUTROPHIL # 1.8 TH/MM3 (1.8-7.7); BASOPHIL % 0.8 % (0.0-2.0); EOSINOPHIL # 0.1 TH/MM3 (0-0.4); EOSINOPHIL % 2.5 % (0.0-4.0); HEMATOCRIT 34.4 % (39.0-51.0); HEMOGLOBIN 11.5 GM/DL (13.0-17.0); LYMPH % 50.7 % (9.0-44.0); LYMPHOCYTE # 2.5 TH/MM3 (1.0-4.8); MEAN CELL VOLUME 86.1 FL (80.0-100.0); MEAN CORPUSCULAR HEMOGLOBIN 28.8 PG (27.0-34.0); MEAN CORPUSCULAR HGB CONC 33.4 % (32.0-36.0); MEAN PLATELET VOLUME 7.9 FL (7.0-11.0); MONO % 9.6 % (0.0-8.0); MONOCYTE # 0.5 TH/MM3 (0-0.9); NEUT % 36.4 % (16.0-70.0); PLATELET COUNT 305 TH/MM3 (150-450); RED CELL DISTRIBUTION WIDTH 14.2 % (11.6-17.2)
[2017-09-01 20:39] LABS: INTERNATIONAL NORMALIZED RATIO 1.1 RATIO; PROTHROMBIN TIME - PATIENT 11.4 SEC (9.8-11.6)
[2017-09-01 20:49] LABS: ALT (GPT) 29 U/L (12-78)
[2017-09-01 20:51] LABS: ALKALINE PHOSPHATASE 187 U/L (45-117); TOTAL BILIRUBIN ADULT 0.4 MG/DL (0.2-1.0)
[2017-09-01 21:08] LABS: ALBUMIN 2.6 GM/DL (3.4-5.0); AST (GOT) 30 U/L (15-37); BICARBONATE 28.1 MEQ/L (21.0-32.0); BLOOD UREA NITROGEN 16 MG/DL (7-18); CALCIUM 8.5 MG/DL (8.5-10.1); CHLORIDE 108 MEQ/L (98-107); CREATININE 1.02 MG/DL (0.60-1.30); GLOMERULAR FILTRATION RATE 90 ML/MIN (>89); GLUCOSE,RANDOM 85 MG/DL (74-106); SODIUM (NA) 141 MEQ/L (136-145)
[2017-09-01] MEDS ORDERED: APIX5TAB PO (21:39)
[2017-09-01] MEDS ORDERED: APIXABAN 5 MG TABLET PO ONE (22:00)
== END 2017-09-01 23:01 | disposition home or self-care (01) ==
LOC: NEPD 16:39
DX: I82.812 Embolism and thrombosis of superficial veins of left lower extremity (principal); F17.200 Nicotine dependence, unspecified, uncomplicated; Z79.01 Long term (current) use of anticoagulants
CPT/HCPCS: 80053; 85025; 85610; 85730; 93971; 99284